=== PATIENT | male | born 1965 | race Caucasian/White ===

== ENCOUNTER → 2019-11-01 | Outpatient (CLI) | payer BC ==
[~2019-11-01] MED LIST: AMIO200T4 PO; APIX5TAB PO; ASPI-983 PO; CALC10009 PO; DIGO250T15 PO; FISH1CAP15 PO; FURO-124 PO; IBUP-2473 PO; METO50TA7 PO; MULT1TAB60 PO; POTA10TA36 PO; SACU1TAB2 PO; SAW450CA7 PO; SPIR25TA5 PO
[2019-11-01 11:41] LABS: BASOPHILS # (AUTO) 0.1 10^3/uL (0.0-0.1); BASOPHILS % (AUTO) 1 % (0-10); EOSINOPHILS # (AUTO) 0.6 10^3/uL (0.0-0.3); EOSINOPHILS % (AUTO) 8 % (0-10); HEMATOCRIT 50 % (40-54); HEMOGLOBIN 16.4 G/DL (13.3-17.7); LYMPHOCYTES # (AUTO) 2.4 X 10^3 (1.0-4.0); LYMPHOCYTES % (AUTO) 31 % (12-44); MEAN CORPUSCULAR HEMOGLOBIN 31 PG (25-34); MEAN CORPUSCULAR HGB CONC 33 G/DL (32-36); MEAN CORPUSCULAR VOLUME 93 FL (80-99); MEAN PLATELET VOLUME 9.9 FL (7.4-10.4); MONOCYTES # (AUTO) 0.6 X 10^3 (0.0-1.0); MONOCYTES % (AUTO) 7 % (0-12); NEUTROPHILS # (AUTO) 3.9 X 10^3 (1.8-7.8); NEUTROPHILS % (AUTO) 52 % (42-75); PLATELET COUNT 208 10^3/uL (130-400); RED CELL DISTRIBUTION WIDTH 13.1 % (10.0-14.5); WHITE BLOOD COUNT 7.5 10^3/uL (4.3-11.0)
[2019-11-01 12:00] LABS: BILIRUBIN,TOTAL 0.7 MG/DL (0.1-1.0); CALCIUM 9.2 MG/DL (8.5-10.1); CREATININE SERUM 1.36 MG/DL (0.60-1.30); MAGNESIUM 2.2 MG/DL (1.6-2.4); POTASSIUM 4.9 MMOL/L (3.6-5.0); TOTAL PROTEIN 7.1 GM/DL (6.4-8.2)
== END ==
LOC: LAB 11:24
PROVIDERS: ATTEND Internal Medicine Cardiovascular Disease
DX: I42.0 Dilated cardiomyopathy (principal); I50.23 Acute on chronic systolic (congestive) heart failure; I48.0 Paroxysmal atrial fibrillation
CPT/HCPCS: 36415; 80053; 80162; 83735; 85025

== ENCOUNTER → 2019-11-07 | Outpatient (CLI) | payer BC ==
[2019-11-07 14:03] LABS: CHLORIDE 104 MMOL/L (98-107); POTASSIUM 4.2 MMOL/L (3.6-5.0); SODIUM 138 MMOL/L (135-145)
[2019-11-07 14:04] LABS: CALCIUM 8.8 MG/DL (8.5-10.1)
[2019-11-07 14:05] LABS: GLUCOSE 110 MG/DL (70-105)
[2019-11-07 14:06] LABS: CARBON DIOXIDE 23 MMOL/L (21-32)
[2019-11-07 14:09] LABS: CREATININE SERUM 1.22 MG/DL (0.60-1.30); GFR ESTIMATED > 60
[2019-11-07 14:10] LABS: BUN/CREATININE RATIO 15
== END ==
LOC: LAB 13:39
PROVIDERS: ATTEND Nurse Practitioner Family
DX: R78.89 Finding of other specified substances, not normally found in blood (principal)
CPT/HCPCS: 36415; 80048; 80162

== ENCOUNTER → 2019-12-21 | Outpatient (CLI) | payer BC ==
[2019-12-21 10:37] LABS: BUN/CREATININE RATIO 11; CALCIUM 8.6 MG/DL (8.5-10.1); CARBON DIOXIDE 26 MMOL/L (21-32); CHLORIDE 107 MMOL/L (98-107); CREATININE SERUM 1.24 MG/DL (0.60-1.30); GFR ESTIMATED > 60; GLUCOSE 94 MG/DL (70-105); MAGNESIUM 2.1 MG/DL (1.6-2.4); POTASSIUM 3.6 MMOL/L (3.6-5.0); SODIUM 140 MMOL/L (135-145)
== END ==
LOC: LAB 10:01
PROVIDERS: ATTEND Nurse Practitioner Family
DX: I42.0 Dilated cardiomyopathy (principal)
CPT/HCPCS: 36415; 80048; 80162; 83735

== ENCOUNTER → 2020-03-01 | Outpatient (CLI) | payer BC ==
[~2020-03-01] MED LIST changes: +ASPI-1238 PO; -ASPI-983 PO; +CATHETER FLUSH 10 ML SYR IV PRN; +HEParin (CENTRAL IV FLUSH) 500 UNIT/5 ML SYR ONE
== END ==
LOC: CARD 13:42
PROVIDERS: ATTEND Nurse Practitioner Family
DX: I48.0 Paroxysmal atrial fibrillation (principal); I42.0 Dilated cardiomyopathy; I50.22 Chronic systolic (congestive) heart failure; E66.01 Morbid (severe) obesity due to excess calories
CPT/HCPCS: 78472; A9560

== ENCOUNTER → 2020-04-29 | Outpatient (CLI) | payer BC ==
[~2020-04-29] MED LIST changes: -AMIO200T4 PO; +AMIO200T6 PO; -CATHETER FLUSH 10 ML SYR IV PRN; -HEParin (CENTRAL IV FLUSH) 500 UNIT/5 ML SYR ONE
[2020-04-29 14:00] LABS: ALBUMIN 4.6 GM/DL (3.2-4.5); CHLORIDE 103 MMOL/L (98-107); POTASSIUM 4.2 MMOL/L (3.6-5.0); SODIUM 139 MMOL/L (135-145)
[2020-04-29 14:01] LABS: CALCIUM 9.1 MG/DL (8.5-10.1)
[2020-04-29 14:02] LABS: GLUCOSE 97 MG/DL (70-105); TOTAL PROTEIN 7.5 GM/DL (6.4-8.2)
[2020-04-29 14:03] LABS: CARBON DIOXIDE 27 MMOL/L (21-32)
[2020-04-29 14:04] LABS: BILIRUBIN,TOTAL 0.5 MG/DL (0.1-1.0)
[2020-04-29 14:06] LABS: ALKALINE PHOSPHATASE 37 U/L (40-136); CREATININE SERUM 1.44 MG/DL (0.60-1.30); GFR ESTIMATED 51
[2020-04-29 14:07] LABS: BUN/CREATININE RATIO 10
[2020-04-29 14:09] LABS: ALANINE AMINOTRANSFERASE 22 U/L (0-55); MAGNESIUM 2.2 MG/DL (1.6-2.4)
== END ==
LOC: LAB 13:30
PROVIDERS: ATTEND Nurse Practitioner Family
DX: I42.0 Dilated cardiomyopathy (principal); I48.0 Paroxysmal atrial fibrillation; I50.22 Chronic systolic (congestive) heart failure; Z79.01 Long term (current) use of anticoagulants
CPT/HCPCS: 36415; 80053; 80162; 83735

== ENCOUNTER → 2020-05-03 | Outpatient (CLI) | payer BC | LOC: CARD 12:57 | PROVIDERS: ATTEND Nurse Practitioner Family | DX: I51.7 Cardiomegaly (principal); I51.89 Other ill-defined heart diseases; I42.0 Dilated cardiomyopathy | CPT/HCPCS: 93306 ==

== ENCOUNTER 2020-11-28 10:00 | Observation (INO) | payer BC ==
[~2020-11-28] VITALS: Ht 182.9 cm; Wt 93.0 kg
[2020-11-28] VITALS (10 sets, daily range): BP systolic 73–123; BP diastolic 44–88
[2020-11-28 10:48] LABS: BASOPHILS % (AUTO) 0 % (0-10); EOSINOPHILS # (AUTO) 0.1 10^3/uL (0.0-0.3); EOSINOPHILS % (AUTO) 1 % (0-10); HEMATOCRIT 27 % (40-54); LYMPHOCYTES # (AUTO) 0.9 10^3/uL (1.0-4.0); LYMPHOCYTES % (AUTO) 9 % (12-44); MEAN CORPUSCULAR HEMOGLOBIN 35 pg (25-34); MEAN CORPUSCULAR HGB CONC 37 g/dL (32-36); MEAN CORPUSCULAR VOLUME 97 fL (80-99); MEAN PLATELET VOLUME 8.7 fL (9.0-12.2); MONOCYTES # (AUTO) 0.9 10^3/uL (0.0-1.0); MONOCYTES % (AUTO) 9 % (0-12); NEUTROPHILS # (AUTO) 8.4 10^3/uL (1.8-7.8); NEUTROPHILS % (AUTO) 80 % (42-75); PLATELET COUNT 281 10^3/uL (130-400); WHITE BLOOD COUNT 10.5 10^3/uL (4.3-11.0)
[2020-11-28 10:52] LABS: ALBUMIN 4.7 GM/DL (3.2-4.5); CHLORIDE 84 MMOL/L (98-107); POTASSIUM 3.5 MMOL/L (3.6-5.0)
[2020-11-28 10:53] LABS: CALCIUM 9.3 MG/DL (8.5-10.1)
[2020-11-28 10:54] LABS: GLUCOSE 103 MG/DL (70-105); TOTAL PROTEIN 7.6 GM/DL (6.4-8.2)
[2020-11-28 10:55] LABS: CARBON DIOXIDE 23 MMOL/L (21-32)
[2020-11-28 10:56] LABS: BILIRUBIN,TOTAL 0.9 MG/DL (0.1-1.0)
[2020-11-28 10:58] LABS: ALKALINE PHOSPHATASE 56 U/L (40-136); CREATININE SERUM 1.66 MG/DL (0.60-1.30); GFR ESTIMATED 43
[2020-11-28 10:59] LABS: BUN/CREATININE RATIO 5
[2020-11-28 11:01] LABS: ALANINE AMINOTRANSFERASE 71 U/L (0-55); MAGNESIUM 2.5 MG/DL (1.6-2.4)
[2020-11-28 11:06] LABS: SODIUM 120 MMOL/L (135-145)
[2020-11-28] MEDS ORDERED: NS IV 1000 ML 1,000 ML IV SCH ×2 (11:15→18:00)
--- NOTE | 2020-11-28 11:15 | ED Syncope ---
General Chief Complaint: Dizziness Stated Complaint: DIZZINESS Nursing Triage Note: PT PRESENTS TO ED VIA POV FROM HOME WITH COMPLAINTS OF DIZZINESS AND LIGHTHEADEDNESS X 2 DAYS. (MAX SHERWOOD MED STUDENT) History of Present Illness Date Seen by Provider: November 28, 2020 Time Seen by Provider: 10:15 Initial Comments 55 y/o male with PMHx of nonischemic dilated cardiomyopathy, EtOH abuse and Afib presents with 2-3 days of dizziness on standing. Patient states dizziness feels like a lightheadedness/like he is going to pass out when he stands up, but does not feel it at rest. He reports never having had similar symptoms before. He reports having fallen last night because of his dizziness, falling onto his R abdomen though he did not pass out and has no pain or injury from the fall. He also states he has not been eating much over the last few days due to lack of appetite, possibly from a cold he is recovering from. Patient is currently taking Entresto, Furosemide, Amioderone, Metoprolol, Eliquis, Spironolactone and Digoxin. Reports he feels a little anxious but denies any chest pain, palpitations, SOB, wheezing, abdominal pain, vomiting, diarrhea, syncope, vision changes, and hearing changes. -Heart Cath 10/17/19 -EF 10% -Echo 10/14/19 -mod/sev MR -mod/sev TR (MAX SHERWOOD MED STUDENT) Allergies and Home Medications Allergies Coded Allergies: No Known Drug Allergies (Unverified , 10/13/19) Home Medications Amiodarone HCl 200 Mg Tablet, 200 MG PO DAILY, (Reported) Last Action: Continued Apixaban 5 Mg Tablet, 5 MG PO BID, (Reported) Last Action: Continued Aspirin 81 Mg Tablet.dr, 81 MG PO DAILY, (Reported) Last Action: Held Digoxin 125 Mcg Tablet, 125 MCG PO DAILY, (Reported) Last Action: Continued Diphenhydramine HCl 25 Mg Tablet, 25-50 MG PO HS PRN for SLEEP, (Reported) Last Action: Held Furosemide 40 Mg Tablet, 40 MG PO BID, (Reported) Last Action: Held Metoprolol Succinate 50 Mg Tab.er.24h, 50 MG PO DAILY, (Reported) Last Action: Held Potassium Chloride 10 Meq Tab.er.prt, 10 MEQ PO BID, (Reported) Last Action: Held Sacubitril/Valsartan 1 Each Tablet, 1 TAB PO BID, (Reported) Last Action: Held Spironolactone 25 Mg Tablet, 25 MG PO DAILY, (Reported) Last Action: Held Patient Home Medication List Home Medication List Reviewed: Yes (MARTÍN CLINE MD) Review of Systems Constitutional: dizziness; No fever, No malaise EENTM: No hearing loss, No blurred vision, No double vision, No vision loss Respiratory: No cough, No short of breath, No wheezing Cardiovascular: No chest pain, No palpitations, No syncope Gastrointestinal: No abdominal pain, No constipation, No diarrhea, No vomiting Genitourinary: No dysuria, No hematuria, No incontinence Musculoskeletal: No back pain, No joint pain Skin: No pruritus, No rash Psychiatric/Neurological: Anxiety; Denies Headache (MAX SHERWOOD) Past Hearfnx-Rkaywp-Ypejml Hx Patient Social History Alcohol Use: Occasionally Uses Number of Drinks Today: AA Alcohol Beverage of Choice: Beer Smoking Status: Former Smoker Former Smoker, Quit: November 20, 1997 2nd Hand Smoke Exposure: No Recent Infectious Disease Expo: No Recent Hopitalizations: No (MAX SHERWOOD) Seasonal Allergies Seasonal Allergies: No (MAX SHERWOOD) Past Medical History Surgeries: Yes (R LEG) Orthopedic Respiratory: No Cardiac: Yes Atrial Fibrillation, Chronic Edema/Swelling, Hypertension Neurological: No Genitourinary: No Gastrointestinal: No Musculoskeletal: No Endocrine: No HEENT: No Cancer: No Psychosocial: Yes Anxiety Integumentary: No (MAX SHERWOOD) Family Medical History No Pertinent Family Hx (MAX SHERWOOD) Physical Exam Vital Signs Vital Signs - First Documented 11/28/20 10:06 Temp 36.1 Pulse 78 Resp 22 B/P (MAP) 123/74 (90) Pulse Ox 98 (MARTÍN CLINE MD) Vital Signs Capillary Refill : Less Than 3 Seconds (MAX SHERWOOD) Height, Weight, BMI Height: '" Weight: lbs. oz. kg; 29.00 BMI Method: General Appearance: No Apparent Distress, WD/WN HEENT: PERRL/EOMI, Moist Mucous Membranes Neck: Normal Inspection, Non Tender Cardiovascular: Regular Rate, Rhythm, No Edema, No Murmur Respiratory: Chest Non Tender, Lungs Clear, Normal Breath Sounds Gastrointestinal: Normal Bowel Sounds, Non Tender, Soft Back: No CVA Tenderness, No Vertebral Tenderness Extremities: Normal Capillary Refill, Normal Inspection, Non Tender Neurologic/Psychiatric: Alert, Normal Mood/Affect Cranial Nerves: Normal Hearing, Normal Speech, PERRL Coordination/Gait: Normal Gait Motor/Sensory: No Motor Deficit Skin: Normal Color, Warm/Dry Lymphatic: No Adenopathy (MAX SHERWOOD STUDENT) Progress/Results/Core Measures Results/Orders Lab Results Laboratory Tests Test 11/28/20 10:20 Range/Units White Blood Count 10.5 4.3-11.0 10^3/uL Red Blood Count 2.83 L 4.30-5.52 10^6/uL Hemoglobin 10.0 L 13.3-17.7 g/dL Hematocrit 27 L 40-54 % Mean Corpuscular Volume 97 80-99 fL Mean Corpuscular Hemoglobin 35 H 25-34 pg Mean Corpuscular Hemoglobin Concent 37 H 32-36 g/dL Red Cell Distribution Width 13.4 10.0-14.5 % Platelet Count 281 130-400 10^3/uL Mean Platelet Volume 8.7 L 9.0-12.2 fL Immature Granulocyte % (Auto) 2 % Neutrophils (%) (Auto) 80 H 42-75 % Lymphocytes (%) (Auto) 9 L 12-44 % Monocytes (%) (Auto) 9 0-12 % Eosinophils (%) (Auto) 1 0-10 % Basophils (%) (Auto) 0 0-10 % Neutrophils # (Auto) 8.4 H 1.8-7.8 10^3/uL Lymphocytes # (Auto) 0.9 L 1.0-4.0 10^3/uL Monocytes # (Auto) 0.9 0.0-1.0 10^3/uL Eosinophils # (Auto) 0.1 0.0-0.3 10^3/uL Basophils # (Auto) 0.0 0.0-0.1 10^3/uL Immature Granulocyte # (Auto) 0.2 H 0.0-0.1 10^3/uL Sodium Level 120 *L 135-145 MMOL/L Potassium Level 3.5 L 3.6-5.0 MMOL/L Chloride Level 84 L 98-107 MMOL/L Carbon Dioxide Level 23 21-32 MMOL/L Anion Gap 15 H 5-14 MMOL/L Blood Urea Nitrogen 9 7-18 MG/DL Creatinine 1.66 H 0.60-1.30 MG/DL Estimat Glomerular Filtration Rate 43 BUN/Creatinine Ratio 5 Glucose Level 103 70-105 MG/DL Calcium Level 9.3 8.5-10.1 MG/DL Corrected Calcium 8.5-10.1 MG/DL Magnesium Level 2.5 H 1.6-2.4 MG/DL Total Bilirubin 0.9 0.1-1.0 MG/DL Aspartate Amino Transf (AST/SGOT) 82 H 5-34 U/L Alanine Aminotransferase (ALT/SGPT) 71 H 0-55 U/L Alkaline Phosphatase 56 40-136 U/L B-Type Natriuretic Peptide 31.3 <100.0 PG/ML Total Protein 7.6 6.4-8.2 GM/DL Albumin 4.7 H 3.2-4.5 GM/DL Digoxin Level 0.99 0.80-2.00 NG/ML Serum Alcohol < 10 <10 MG/DL (MARTÍN CLINE MD) My Orders Orders - MARTÍN CLINE MD Cbc With Automated Diff (11/28/20 10:40) Comprehensive Metabolic Panel (11/28/20 10:40) Magnesium (11/28/20 10:40) Ed Iv/Invasive Line Start (11/28/20 10:40) Ekg Tracing (11/28/20 10:40) Monitor-Rhythm Ecg Trace Only (11/28/20 10:40) BNP (11/28/20 10:40) Digoxin (11/28/20 10:44) Alcohol (11/28/20 10:44) Orthostatic Vital Signs (Adult (11/28/20 10:45) Ns Iv 1000 Ml (Sodium Chloride 0.9%) (11/28/20 11:15) (MARTÍN CLINE MD) Vital Signs/I&O 11/28/20 11/28/20 10:06 10:49 Temp 36.1 Pulse 78 71 76 81 Resp 22 B/P (MAP) 123/74 (90) 109/66 (80) 104/54 (71) 73/58 (63) Pulse Ox 98 (MARTÍN CLINE MD) Blood Pressure Mean: 63 Progress Progress Note : Time: 11:13 Progress Note Orthostatics show sitting BP 104/54, standing BP of 73/58, labs show significant hyponatremia of 120, will give NS and monitor (MAX SHERWOOD MED STUDENT) Progress Note #1: Time: 12:25 Progress Note Patient was found to have multiple causes for his lightheadedness. He had orthostatic hypotension with a standing systolic blood pressure of 73. He was also hyponatremic and exhibiting renal insufficiency, possibly acute kidney injury. Sodium was noted to be 120 which is likely due to a combination of daily alcohol consumption of approximately 12 beers combined with diuretic use. Patient also uses beta-blockers. He was found to have a new anemia with a hemoglobin of 10. He has noted some dark black tarry stools recently. I have requested Hemoccult of his stools. He is receiving a liter of IV normal saline in the ER. We will follow that with normal saline at 100 mL/h. Patient is agreeable to admission to help sort out these issues and ensure adequate improvement before he is discharged home. Alcohol withdrawal orders will be added to his admission order set. I have discussed the case with Dr. Howard and Dr. Cotter. Progress Note #2: Time: 13:11 Progress Note Patient now complains of right shoulder pain since having a fall 2 weeks ago. He tripped over a rabbit cage and struck his right shoulder on the ground. He cannot lift it beyond about 90 degrees and he has tenderness to palpation over the AC joint region. We will x-ray it. Progress Note #3: Progress Note Patient's x-ray was reviewed after admission. Fracture was noted. The floor was contacted and instructed to provide him with a sling. Dr. Howard was updated. This is a subacute fracture by clinical history. No trauma consult is necessary. (MARTÍN CLINE MD) Initial ECG Impression Date: November 28, 2020 Initial ECG Impression Time: 10:11 Initial ECG Rate: 74 Comment Sinus or junctional rhythm. Automated read notes left bundle branch block. Morphologies are similar to prior EKGs but prior EKGs were atrial fibrillation. No ST elevation or depression. (MARTÍN CLINE MD) Diagnostic Imaging Diagonstic Imaging: Xray Plain Films/CT/US/NM/MRI: other (Right shoulder) Comments NAME: SUJEY ZHANG REC#: [id number] PT STATUS: ADM Amee : 1965 PHYSICIAN: MARTÍN CLINE MD ADMIT DATE: 11/28/20/ICU Signed Date of Exam:11/28/20 SHOULDER, RIGHT, 3 VIEWS INDICATION: Fall and right shoulder pain. TIME OF EXAM: 01:48 p.m. TECHNIQUE: Three views of the right shoulder were obtained. FINDINGS: There appears to be a fracture involving the greater tuberosity of the proximal humerus. No significant displacement is seen. Glenohumeral and acromioclavicular alignment are normal. The acromiohumeral space is normal. IMPRESSION: Fracture involving the greater tuberosity of the proximal humerus. No other abnormality is seen. Dictated by: Dictated on workstation # [id number] Dict: 11/28/20 1408 Trans: 11/28/20 1555 AS6 [id number] Interpreted by: CARLOS CARDENAS MD Electronically signed by: CARLOS CARDENAS MD 11/28/20 1555 (MARTÍN CLINE MD) Departure Communication (Admissions) Time/Spoke to Admitting Phy: 12:10 Dr. Howard Time/Spoke to Consulting Phy: 12:20 Dr. Cotter (MARTÍN CLINE MD) Impression Primary Impression: Hyponatremia Additional Impressions: Orthostatic hypotension Alcohol dependence Qualified Codes: F10.29 - Alcohol dependence with unspecified alcohol- induced disorder Anemia Qualified Codes: D64.9 - Anemia, unspecified Acute kidney injury Shoulder fracture, right Qualified Codes: S42.91XA - Fracture of right shoulder girdle, part unspecified, initial encounter for closed fracture Disposition: ADMITTED INPATIENT Condition: Improved Admissions Decision to Admit Reason: Admit from ER (General) Decision to Admit/Date: November 28, 2020 Time/Decision to Admit Time: 11:15 (MARTÍN CLINE MD) Departure-Patient Inst. Referrals: [facility] (PCP/Family) Primary Care Physician Medical Student Attestation and Attending Note: I have personally interviewed and examined this patient along with Max Sherwood MS3. I have reviewed student documentation including history, physical, and assessments. I agree with the documentation except where otherwise noted. Exam: General: Alert, oriented, no acute distress, well developed HEENT: Normocephalic and atraumatic Heart: Regular rate and rhythm without murmur Lungs: Clear to auscultation bilaterally with normal effort Abdomen: Soft, nontender, nondistended, normal bowel sounds Extremities: Decreased range of motion in the right shoulder. Unable to abduct beyond 90 degrees. Tenderness to the lateral shoulder with palpation. Neuropsych: Alert, oriented, no focal deficits Skin: Warm and dry without rashes (MARTÍN CLINE MD) MAX SHERWOOD MED STUDENT November 28, 2020 11:15 MARTÍN CLINE MD November 28, 2020 12:18
--- NOTE | 2020-11-28 14:13 | Diagnostic Imaging Report ---
INDICATION: Fall and right shoulder pain. TIME OF EXAM: 01:48 p.m. TECHNIQUE: Three views of the right shoulder were obtained. FINDINGS: There appears to be a fracture involving the greater tuberosity of the proximal humerus. No significant displacement is seen. Glenohumeral and acromioclavicular alignment are normal. The acromiohumeral space is normal. IMPRESSION: Fracture involving the greater tuberosity of the proximal humerus. No other abnormality is seen. Dictated by: Dictated on workstation # [id number]
[2020-11-28] MEDS ORDERED: LORazepam 1 MG (ATIVAN) TAB PO PRN (14:15)
[2020-11-28] MEDS ORDERED: SENNA W/DOCUSATE (SENOKOT S) TABLET PO PRN (14:15)
[2020-11-28] MEDS ORDERED: LORazepam INJ 2 MG/ML (ATIVAN) VIAL IV PRN (14:15)
[2020-11-28] MEDS ORDERED: CATHETER FLUSH 10 ML SYR IV PRN (14:15)
[2020-11-28] MEDS ORDERED: 1/2 NS IV SOLUTION 1,000 ML IV PRN (14:15)
[2020-11-28] MEDS ORDERED: D5 1/2 NS 1000 ML IV SOLUTION 1,000 ML IV PRN (14:15)
[2020-11-28] MEDS ORDERED: ANTACID SUSP 30 ML UDC (MYLANTA) PO PRN (14:15)
[2020-11-28] MEDS ORDERED: ONDANSETRON 4 MG (ZOFRAN) ORAL DISSOLVE TAB SL PRN (14:15)
[2020-11-28] MEDS ORDERED: ONDANSETRON 4 MG/2 ML (SDV) Z0FRAN IV PRN (14:15)
[2020-11-28] MEDS ORDERED: LORazepam INJ 2 MG/ML (ATIVAN) VIAL IM/IV PRN (14:15)
[2020-11-28] MEDS ORDERED: SPIR25TA PO (15:32)
[2020-11-28] MEDS ORDERED: POTA10TA36 PO (15:32)
[2020-11-28] MEDS ORDERED: DIPH25TA65 PO (15:32)
[2020-11-28] MEDS ORDERED: APIX5TAB PO (15:32)
[2020-11-28] MEDS ORDERED: ASPI-1238 PO (15:32)
[2020-11-28] MEDS ORDERED: FURO40TA4 PO (15:32)
[2020-11-28] MEDS ORDERED: METO50TA7 PO (15:32)
[2020-11-28] MEDS ORDERED: SACU1TAB2 PO (15:32)
[2020-11-28] MEDS ORDERED: AMIO200T6 PO (15:32)
[2020-11-28] MEDS ORDERED: DIGO125T3 PO (15:32)
--- NOTE | 2020-11-28 15:38 | Consultation-Cardiology ---
HPI-Cardiology Cardiology Consultation: Date of Consultation 11/28/20 Time Seen by a Provider: 15:35 Date of Admission 11-28-2020 Attending Physician Alba Howard MD Admitting Physician [place] Consulting Physician Michael Cotter MD HPI: Chief Complaint: Orthostatic hypotension Mr. Francisco is a 55 yr old male admitted to ICU 8 from the ED with dizziness which started a couple of days ago. He reports he has had frequent falls recently d/t losing his balance, but does not report syncope or near syncope. He states yesterday he fell onto his coffee table at home breaking it. He states he has increased his alcohol usage in the last 5 months to drinking on a daily basis 6-7 beers per night and much more on the weekends. He denies any c/o CP, palpitations, LE swelling. He states he has been taking his medication s. He reports poor oral intake of food over the last few days, but has continued to drink alcohol. Review of Systems-Cardiology Review of Systems Constitutional: No chills, No fever; lightheadedness Eyes: No vision change Ears/Nose/Throat: No epistaxis, No recent hearing loss Respiratory: As described under HPI Cardiovascular: As described under HPI Gastrointestinal: No constipation, No diarrhea; nausea; No vomiting Genitourinary: No dysuria, No hematuria Skin: No rash on exposed areas, No ulcerations on exposed areas Psychiatric/Neurological: depression; No anxiety, No seizure, No focal weakness, No syncope Hematologic: No bleeding abnormalities ETV-Jcnggg-Axjjrx Hx Patient Social History Smoking Status: Former Smoker 2nd Hand Smoke Exposure: No Past Medical History PMH As described under Assessment. Family Medical History Family Medical History: Does not report fam h/o early CAD Allergies and Home Medications Allergies Coded Allergies: No Known Drug Allergies (Unverified , 10/13/19) Home Medications Amiodarone HCl 200 Mg Tablet, 200 MG PO DAILY, (Reported) Last Action: Continued Apixaban 5 Mg Tablet, 5 MG PO BID, (Reported) Last Action: Continued Aspirin 81 Mg Tablet.dr, 81 MG PO DAILY, (Reported) Last Action: Held Digoxin 125 Mcg Tablet, 125 MCG PO DAILY, (Reported) Last Action: Continued Diphenhydramine HCl 25 Mg Tablet, 25-50 MG PO HS PRN for SLEEP, (Reported) Last Action: Held Furosemide 40 Mg Tablet, 40 MG PO BID, (Reported) Last Action: Held Metoprolol Succinate 50 Mg Tab.er.24h, 50 MG PO DAILY, (Reported) Last Action: Held Potassium Chloride 10 Meq Tab.er.prt, 10 MEQ PO BID, (Reported) Last Action: Held Sacubitril/Valsartan 1 Each Tablet, 1 TAB PO BID, (Reported) Last Action: Held Spironolactone 25 Mg Tablet, 25 MG PO DAILY, (Reported) Last Action: Held Physical Exam-Cardiology Physical Exam Vital Signs/I&O 11/28/20 11/28/20 11/28/20 11/28/20 20:24 21:00 22:00 23:00 Temp 36.4 Pulse 62 61 62 Resp 13 9 8 B/P (MAP) 102/57 (72) 101/57 (72) 117/74 (88) Pulse Ox 99 98 100 O2 Delivery Room Air Room Air Room Air 11/29/20 11/29/20 11/29/20 11/29/20 00:00 00:00 01:00 01:00 Pulse 66 67 67 Resp 11 25 B/P (MAP) 103/56 (72) 96/66 (76) Pulse Ox 92 99 99 O2 Delivery Room Air Room Air Room Air 11/29/20 11/29/20 11/29/20 11/29/20 02:00 03:00 04:00 04:00 Pulse 66 65 68 Resp 15 10 11 B/P (MAP) 106/68 (81) 114/73 (87) 110/57 (74) Pulse Ox 100 86 100 99 O2 Delivery Room Air Room Air Room Air Room Air 11/29/20 11/29/20 11/29/20 11/29/20 05:00 06:00 07:00 07:00 Pulse 66 66 64 63 Resp 10 8 12 B/P (MAP) 105/95 (98) 116/67 (83) 107/72 (84) Pulse Ox 98 99 99 O2 Delivery Room Air Room Air Room Air 11/29/20 07:54 Temp 36.0 11/29/20 00:00 Intake Total 1025 ml Output Total 0 ml Balance 1025 ml Capillary Refill : Less Than 3 Seconds Constitutional: AAO x 3, well-developed, well-nourished HEENT: PERRL, hearing is well preserved, oral hygience is good Neck: No carotid bruit; carotid pulses are 2 + bilaterally Respiratory: No accessory muscle use, No respiratory distress; chest expansion is symmetric, chest is bilaterally symmetric, lungs clear to auscultation Cardiovascular: irregularly irregular; No JVD; S1 and S2 Gastrointestinal: No tender; soft, round, audible bowel sounds Extremities: no lower extremity edema bilateral Neurologic/Psychiatric: grossly intact (moves all extremities) Skin: No rash on exposed areas, No ulcerations on exposed areas Data Review Labs Laboratory Tests 11/28/20 10:20: White Blood Count 10.5, Red Blood Count 2.83L, Hemoglobin 10.0L, Hematocrit 27L, Mean Corpuscular Volume 97, Mean Corpuscular Hemoglobin 35H, Mean Corpuscular Hemoglobin Concent 37H, Red Cell Distribution Width 13.4, Platelet Count 281, Mean Platelet Volume 8.7L, Immature Granulocyte % (Auto) 2, Neutrophils (%) (Auto) 80H, Lymphocytes (%) (Auto) 9L, Monocytes (%) (Auto) 9, Eosinophils (%) (Auto) 1, Basophils (%) (Auto) 0, Neutrophils # (Auto) 8.4H, Lymphocytes # (Auto) 0.9L, Monocytes # (Auto) 0.9, Eosinophils # (Auto) 0.1, Basophils # (Auto) 0.0, Immature Granulocyte # (Auto) 0.2H, Sodium Level 120*L, Potassium Level 3.5L, Chloride Level 84L, Carbon Dioxide Level 23, Anion Gap 15H, Blood Urea Nitrogen 9, Creatinine 1.66H, Estimat Glomerular Filtration Rate 43, BUN/Creatinine Ratio 5, Glucose Level 103, Calcium Level 9.3, Corrected Calcium , Magnesium Level 2.5H, Total Bilirubin 0.9, Aspartate Amino Transf (AST/SGOT) 82H, Alanine Aminotransferase (ALT/SGPT) 71H, Alkaline Phosphatase 56, B-Type Natriuretic Peptide 31.3, Total Protein 7.6, Albumin 4.7H, Digoxin Level 0.99, Serum Alcohol < 10 11/28/20 19:00: Hemoglobin 8.2L, Hematocrit 23L, Sodium Level 124*L, Potassium Level 3.3L, Chloride Level 92L, Carbon Dioxide Level 22, Anion Gap 10, Blood Urea Nitrogen 12, Creatinine 1.57H, Estimat Glomerular Filtration Rate 46, BUN/Creatinine Ratio 8, Glucose Level 114H, Calcium Level 8.2L 11/29/20 01:32: White Blood Count 8.1, Red Blood Count 2.37L, Hemoglobin 8.4L, Hematocrit 24L, Mean Corpuscular Volume 102H, Mean Corpuscular Hemoglobin 35H, Mean Corpuscular Hemoglobin Concent 35, Red Cell Distribution Width 14.5, Platelet Count 219, Mean Platelet Volume 9.2, Immature Granulocyte % (Auto) 2, Neutrophils (%) (Auto) 72, Lymphocytes (%) (Auto) 16, Monocytes (%) (Auto) 8, Eosinophils (%) (Auto) 2, Basophils (%) (Auto) 1, Neutrophils # (Auto) 5.8, Lymphocytes # (Auto) 1.3, Monocytes # (Auto) 0.7, Eosinophils # (Auto) 0.1, Basophils # (Auto) 0.1, Immature Granulocyte # (Auto) 0.2H, Sodium Level 126L, Potassium Level 3.8, Chloride Level 96L, Carbon Dioxide Level 21, Anion Gap 9, Blood Urea Nitrogen 12, Creatinine 1.47H, Estimat Glomerular Filtration Rate 50, BUN/Creatinine Ratio 8, Glucose Level 108H, Calcium Level 8.2L, Magnesium Level 2.5H, Phosphorus Level 2.9 Radiology NAME: SUJEY FRANCISCO [facility] REC#: [id number] PT STATUS: ADM Amee : 1965 PHYSICIAN: MARTÍN CLINE MD ADMIT DATE: 11/28/20/ICU Draft Date of Exam:11/28/20 SHOULDER, RIGHT, 3 VIEWS INDICATION: Fall and right shoulder pain. TIME OF EXAM: 01:48 p.m. TECHNIQUE: Three views of the right shoulder were obtained. FINDINGS: There appears to be a fracture involving the greater tuberosity of the proximal humerus. No significant displacement is seen. Glenohumeral and acromioclavicular alignment are normal. The acromiohumeral space is normal. IMPRESSION: Fracture involving the greater tuberosity of the proximal humerus. No other abnormality is seen. Dictated on workstation # [id number] Dict: 11/28/20 1408 Trans: 11/28/20 1413 [id number] [id number] Interpreted by: CARLOS CARDENAS MD Electronically signed by: ECG Impression ECG Initial ECG Impression: Atrial Fibrillation A/P-Cardiology Assessment/Admission Diagnosis Orthostatic hypotension Frequent falls at home - denies syncope or near syncope Hyponatremia likely secondary to ETOH abuse Reports heavy ETOH usage over the last 5 months DILLAN - likely secondary to hypotension Chronic systolic CHF (HFrEF) due to severe, nonischemic, dilated cardiomyopathy Echo of 10/14/19: LVEF 10-15%. Most recent echo of May 03, 2020 shows LVEF 40- 45%. Mild diffuse hypokinesis. PASP 35-40mmHg per Dr. Megan DIAZ of Mar 01, 2020 showed mild to mod hypokinesis with LVEF 38% Card cath of 10/17/19: LVEF 10%, global hypokinesis, LVEDP 44 mmHg, no significant CAD H/O multiple episodes of non-sustained VT on 10/14/19, treated with iv amiodarone, no recurrence A Fib of undetermined age. On apixaban for stroke prophylaxis Discussion and Recomendations Orthostatic hypotension likely secondary to vol depletion Hyponatremia likely secondary to heavy ETOH usage - management per medical services H/O NICM - echocardiogram today to re-eval LVEF Hold antihypertensives DILLAN likely secondary to vol depletion and hypotension - careful IVF hydration Frequent non-syncopal falls d/t heavy ETOH intake and vol depletion Right humerus fracture seen on x-ray - management per medical services Monitor lab closely Replace electrolytes as indicated Continue tele Continue OAC with Eliquis for stroke prophylaxis Further recs will be based on his hospital course We advise immediate and complete alcohol cessation We would like to thank medical services for this consult LELO RODAS November 28, 2020 15:38
[2020-11-28] MEDS: NS IV 1000 ML 1,000 ML IV SCH ×2 (16:14→18:12)
--- NOTE | 2020-11-28 17:57 | Consultation-Cardiology ---
HPI-Cardiology Cardiology Consultation: Date of Consultation 11/28/20 Time Seen by a Provider: 17:35 Date of Admission Attending Physician Alba Howard MD Admitting Physician [facility] Consulting Physician CHRISTOPHER MULLEN MD, MA, FACP, FAC, [facility] HPI: Chief Complaint: Reason for consultation: Orthostatic hypotension HPI Mr. Francisco is a 55 yr old male admitted to ICU 8 from the ED with dizziness which started a couple of days ago. He reports he has had frequent falls recently d/t losing his balance, but does not report syncope or near syncope. He states yesterday he fell onto his coffee table at home breaking it. He states he has increased his alcohol usage in the last 5 months to drinking on a daily basis 6-7 beers per night and much more on the weekends. He denies any c/o CP, palpitations, LE swelling. He states he has been taking his medications. He reports poor oral intake of food over the last few days, but has continued to drink alcohol. Review of Systems-Cardiology Review of Systems Constitutional: No chills, No fever; lightheadedness Eyes: No vision change Ears/Nose/Throat: No epistaxis, No recent hearing loss Respiratory: As described under HPI Cardiovascular: As described under HPI Gastrointestinal: No constipation, No diarrhea; nausea; No vomiting Genitourinary: No dysuria, No hematuria Skin: No rash on exposed areas, No ulcerations on exposed areas Psychiatric/Neurological: depression; No anxiety, No seizure, No focal weakness, No syncope Hematologic: No bleeding abnormalities [id number] Hx Patient Social History Smoking Status: Former Smoker 2nd Hand Smoke Exposure: No Have you traveled recently?: No Alcohol Use?: Yes Past Medical History PMH As described under Assessment. Family Medical History Family Medical History: Does not report fam h/o early CAD Allergies and Home Medications Allergies Coded Allergies: No Known Drug Allergies (Unverified , 10/13/19) Home Medications Amiodarone HCl 200 Mg Tablet, 200 MG PO DAILY, (Reported) Last Action: Continued Apixaban 5 Mg Tablet, 5 MG PO BID, (Reported) Last Action: Continued Aspirin 81 Mg Tablet.dr, 81 MG PO DAILY, (Reported) Last Action: Held Digoxin 125 Mcg Tablet, 125 MCG PO DAILY, (Reported) Last Action: Continued Diphenhydramine HCl 25 Mg Tablet, 25-50 MG PO HS PRN for SLEEP, (Reported) Last Action: Held Furosemide 40 Mg Tablet, 40 MG PO BID, (Reported) Last Action: Held Metoprolol Succinate 50 Mg Tab.er.24h, 50 MG PO DAILY, (Reported) Last Action: Held Potassium Chloride 10 Meq Tab.er.prt, 10 MEQ PO BID, (Reported) Last Action: Held Sacubitril/Valsartan 1 Each Tablet, 1 TAB PO BID, (Reported) Last Action: Held Spironolactone 25 Mg Tablet, 25 MG PO DAILY, (Reported) Last Action: Held Patient Home Medication List Home Medication List Reviewed: Yes Physical Exam-Cardiology Physical Exam Vital Signs/I&O 11/28/20 11/28/20 11/28/20 11/28/20 10:06 10:49 13:15 14:15 Temp 36.1 Pulse 78 71 65 64 76 81 Resp 22 20 25 B/P (MAP) 123/74 (90) 109/66 (80) 92/62 123/79 (94) 104/54 (71) 73/58 (63) Pulse Ox 98 98 100 O2 Delivery Room Air 11/28/20 11/28/20 11/28/20 14:16 17:00 17:45 Temp 36.3 Pulse 65 66 Resp 12 B/P (MAP) 74/44 (54) Pulse Ox 100 O2 Delivery Room Air Capillary Refill : Less Than 3 Seconds Constitutional: AAO x 3, well-developed, well-nourished HEENT: PERRL, hearing is well preserved, oral hygience is good Neck: No carotid bruit; carotid pulses are 2 + bilaterally Respiratory: No accessory muscle use, No respiratory distress; chest expansion is symmetric, chest is bilaterally symmetric, lungs clear to auscultation Cardiovascular: irregularly irregular; No JVD; S1 and S2 Gastrointestinal: No tender; soft, round, audible bowel sounds Extremities: no lower extremity edema bilateral Neurologic/Psychiatric: grossly intact (moves all extremities) Skin: No rash on exposed areas, No ulcerations on exposed areas Data Review Labs Laboratory Tests 11/28/20 10:20: White Blood Count 10.5, Red Blood Count 2.83L, Hemoglobin 10.0L, Hematocrit 27L, Mean Corpuscular Volume 97, Mean Corpuscular Hemoglobin 35H, Mean Corpuscular Hemoglobin Concent 37H, Red Cell Distribution Width 13.4, Platelet Count 281, Mean Platelet Volume 8.7L, Immature Granulocyte % (Auto) 2, Neutrophils (%) (Auto) 80H, Lymphocytes (%) (Auto) 9L, Monocytes (%) (Auto) 9, Eosinophils (%) (Auto) 1, Basophils (%) (Auto) 0, Neutrophils # (Auto) 8.4H, Lymphocytes # (Auto) 0.9L, Monocytes # (Auto) 0.9, Eosinophils # (Auto) 0.1, Basophils # (Auto) 0.0, Immature Granulocyte # (Auto) 0.2H, Sodium Level 120*L, Potassium Level 3.5L, Chloride Level 84L, Carbon Dioxide Level 23, Anion Gap 15H, Blood Urea Nitrogen 9, Creatinine 1.66H, Estimat Glomerular Filtration Rate 43, BUN/Creatinine Ratio 5, Glucose Level 103, Calcium Level 9.3, Corrected Calcium , Magnesium Level 2.5H, Total Bilirubin 0.9, Aspartate Amino Transf (AST/SGOT) 82H, Alanine Aminotransferase (ALT/SGPT) 71H, Alkaline Phosphatase 56, B-Type Natriuretic Peptide 31.3, Total Protein 7.6, Albumin 4.7H, Digoxin Level 0.99, Serum Alcohol < 10 A/P-Cardiology Assessment/Admission Diagnosis Shock of undetermined etiology, probably hypovolemic, also consider septic. No e vidence of cardiogenic shock Orthostatic hypotension DILLAN 2, likely due ATN due to hypotension Frequent falls at home - denies syncope or near syncope Hyponatremia likely secondary to ETOH abuse Reports heavy ETOH usage over the last 5 months H/o alcohol-related, nonischemic, dilated cardiomyopathy - Echo of 10/14/19: LVEF 10-15%. - Card cath of 10/17/19: LVEF 10%, global hypokinesis, LVEDP 44 mmHg, no significant CAD - MUGA of Mar 01, 2020 showed mild to mod hypokinesis with LVEF 38% - Echo of May 03, 2020: LVEF 40-45%. Mild diffuse hypokinesis. PASP 35-40mmHg - Echo of 11/28/20: LVEF 50-55%, normal PASP H/O multiple episodes of non-sustained VT on 10/14/19, treated with iv amiodarone, no recurrence PAF. On apixaban for stroke prophylaxis Discussion and Recomendations Orthostatic hypotension likely secondary to vol depletion - IVF Hyponatremia likely secondary to heavy ETOH usage - management per medical services Hold antihypertensives DILLAN likely secondary to vol depletion and hypotension - careful IVF hydration Frequent non-syncopal falls d/t heavy ETOH intake and vol depletion Right humerus fracture seen on x-ray - management per medical services Monitor lab closely Replace electrolytes as indicated Continue tele Continue OAC with Eliquis for stroke prophylaxis D/c dig (rhythm intermittently appears to be junctional) Further recs will be based on his hospital course We advise immediate and complete alcohol cessation We would like to thank Medical services for this consult CHRISTOPHER MULLEN MD FACP [facility]ACC [facility] November 28, 2020 17:56
[2020-11-28 19:04] LABS: HEMOGLOBIN 8.2 g/dL (13.3-17.7)
[2020-11-28 19:20] LABS: CALCIUM 8.2 MG/DL (8.5-10.1); CREATININE SERUM 1.57 MG/DL (0.60-1.30); POTASSIUM 3.3 MMOL/L (3.6-5.0)
[2020-11-28] MEDS: APIXABAN 5 MG (ELIQUIS) TABLET PO SCH (20:13)
[2020-11-28] MEDS: FAMOTIDINE 20 MG (PEPCID) TABLET PO SCH (20:34)
[2020-11-28] MEDS: POTASSIUM CL 10MEQ/50ML IVPB 50 ML IV SCH ×4 (20:34→23:14)
[2020-11-28] MEDS: MAGNESIUM OXIDE (MAG-OX)400 MG TAB PO SCH (20:34)
[2020-11-29] VITALS (25 sets, daily range): BP systolic 82–137; BP diastolic 41–95
[2020-11-29 01:54] LABS: CREATININE SERUM 1.47 MG/DL (0.60-1.30); POTASSIUM 3.8 MMOL/L (3.6-5.0)
[2020-11-29 01:55] LABS: CALCIUM 8.2 MG/DL (8.5-10.1)
[2020-11-29 01:56] LABS: MAGNESIUM 2.5 MG/DL (1.6-2.4); PHOSPHORUS 2.9 MG/DL (2.3-4.7)
[2020-11-29 03:24] LABS: BASOPHILS # (AUTO) 0.1 10^3/uL (0.0-0.1); BASOPHILS % (AUTO) 1 % (0-10); EOSINOPHILS # (AUTO) 0.1 10^3/uL (0.0-0.3); EOSINOPHILS % (AUTO) 2 % (0-10); HEMATOCRIT 24 % (40-54); HEMOGLOBIN 8.4 g/dL (13.3-17.7); LYMPHOCYTES # (AUTO) 1.3 10^3/uL (1.0-4.0); LYMPHOCYTES % (AUTO) 16 % (12-44); MEAN CORPUSCULAR HEMOGLOBIN 35 pg (25-34); MEAN CORPUSCULAR HGB CONC 35 g/dL (32-36); MEAN CORPUSCULAR VOLUME 102 fL (80-99); MEAN PLATELET VOLUME 9.2 fL (9.0-12.2); MONOCYTES # (AUTO) 0.7 10^3/uL (0.0-1.0); MONOCYTES % (AUTO) 8 % (0-12); NEUTROPHILS # (AUTO) 5.8 10^3/uL (1.8-7.8); NEUTROPHILS % (AUTO) 72 % (42-75); PLATELET COUNT 219 10^3/uL (130-400); WHITE BLOOD COUNT 8.1 10^3/uL (4.3-11.0)
[2020-11-29] MEDS: POTASSIUM CL 10MEQ/50ML IVPB 50 ML IV SCH (03:26)
[2020-11-29] MEDS: MAGNESIUM 1 GM/100 ML IVPB 100 ML IV SCH (03:26)
[2020-11-29] MEDS: KCL 20 MEQ TAB (K-DUR) PO SCH (03:26)
[2020-11-29] MEDS: MULTIVIT W/MINERALS TAB (THERAGRAN M) PO SCH (06:33)
[2020-11-29] MEDS: THIAMINE 100 MG (VITAMIN B-1) TAB PO SCH (06:33)
[2020-11-29] MEDS: AMIODARONE 200 MG (CORDARONE) TAB PO SCH (07:52)
[2020-11-29] MEDS: APIXABAN 5 MG (ELIQUIS) TABLET PO SCH (07:52)
[2020-11-29] MEDS: FAMOTIDINE 20 MG (PEPCID) TABLET PO SCH ×2 (07:52→20:31)
[2020-11-29] MEDS: FOLIC ACID 1 MG TAB PO SCH (07:52)
[2020-11-29] MEDS: MAGNESIUM OXIDE (MAG-OX)400 MG TAB PO SCH ×2 (07:52→20:31)
--- NOTE | 2020-11-29 08:20 | Progress Note - Cardiology ---
Cardiology SOAP Progress Note Subjective: Sitting up in bed this morning States he feels fine Reports he has been having dark, tarry BM's at home for a few weeks which he thought was d/t charcoal toothpaste No c/o palpitations No c/o SOB No c/o n/v/d Objective: I&O/Vital Signs 11/29/20 11/29/20 11/29/20 11/29/20 02:00 03:00 04:00 04:00 Pulse 66 65 68 Resp 15 10 11 B/P (MAP) 106/68 (81) 114/73 (87) 110/57 (74) Pulse Ox 100 86 100 99 O2 Delivery Room Air Room Air Room Air Room Air 11/29/20 11/29/20 11/29/20 11/29/20 05:00 06:00 07:00 07:00 Pulse 66 66 64 63 Resp 10 8 12 B/P (MAP) 105/95 (98) 116/67 (83) 107/72 (84) Pulse Ox 98 99 99 O2 Delivery Room Air Room Air Room Air 11/29/20 11/29/20 11/29/20 11/29/20 07:30 07:54 08:00 09:00 Temp 36.0 Pulse 70 68 Resp 14 20 B/P (MAP) 93/56 (68) 82/41 (55) Pulse Ox 98 98 100 O2 Delivery Room Air Room Air Room Air 11/29/20 11/29/20 11/29/20 11/29/20 10:00 10:04 11:00 12:00 Pulse 69 71 67 66 74 75 Resp 17 11 15 B/P (MAP) 118/65 (82) 118/65 (82) 106/61 (76) 110/67 (81) 106/60 (75) 85/55 (65) Pulse Ox 99 99 97 O2 Delivery Room Air Room Air Room Air 11/29/20 11/29/20 12:51 13:00 Pulse 67 68 Resp 16 B/P (MAP) 137/70 (92) Pulse Ox 98 O2 Delivery Room Air 11/29/20 00:00 Intake Total 1025 ml Output Total 0 ml Balance 1025 ml Constitutional: AAO x 3, well-developed, well-nourished Respiratory: No accessory muscle use, No respiratory distress; chest expansion is symmetric, chest is bilaterally symmetric, lungs clear to auscultation Cardiovascular: irregularly irregular; No JVD; S1 and S2 Gastrointestional: No tender; soft, round, audible bowel sounds Extremities: no lower extremity edema bilateral Neurologic/Psychiatric: grossly intact (moves all extremities) Skin: No rash on exposed areas, No ulcerations on exposed areas Results/Procedures: Labs Laboratory Tests 11/28/20 19:00: Hemoglobin 8.2L, Hematocrit 23L, Sodium Level 124*L, Potassium Level 3.3L, Chloride Level 92L, Carbon Dioxide Level 22, Anion Gap 10, Blood Urea Nitrogen 12, Creatinine 1.57H, Estimat Glomerular Filtration Rate 46, BUN/Creatinine R atio 8, Glucose Level 114H, Calcium Level 8.2L 11/29/20 01:32: Hemoglobin 8.4L, Hematocrit 24L, Sodium Level 126L, Potassium Level 3.8, Chloride Level 96L, Carbon Dioxide Level 21, Anion Gap 9, Blood Urea Nitrogen 12, Creatinine 1.47H, Estimat Glomerular Filtration Rate 50, BUN/Creatinine Ratio 8, Glucose Level 108H, Calcium Level 8.2L, White Blood Count 8.1, Red Blood Count 2.37L, Mean Corpuscular Volume 102H, Mean Corpuscular Hemoglobin 35H , Mean Corpuscular Hemoglobin Concent 35, Red Cell Distribution Width 14.5, Platelet Count 219, Mean Platelet Volume 9.2, Immature Granulocyte % (Auto) 2, Neutrophils (%) (Auto) 72, Lymphocytes (%) (Auto) 16, Monocytes (%) (Auto) 8, Eosinophils (%) (Auto) 2, Basophils (%) (Auto) 1, Neutrophils # (Auto) 5.8, Lymphocytes # (Auto) 1.3, Monocytes # (Auto) 0.7, Eosinophils # (Auto) 0.1, Basophils # (Auto) 0.1, Immature Granulocyte # (Auto) 0.2H, Phosphorus Level 2.9, Magnesium Level 2.5H 11/29/20 08:15: Sodium Level 128L, Potassium Level 3.5L, Chloride Level 97L, Carbon Dioxide Level 22, Anion Gap 9, Blood Urea Nitrogen 10, Creatinine 1.36H, Estimat Glomerular Filtration Rate 54, BUN/Creatinine Ratio 7, Glucose Level 132H, Calcium Level 8.3L, Corrected Calcium 8.3L, Total Bilirubin 0.4, Aspartate Amino Transf (AST/SGOT) 45H, Alanine Aminotransferase (ALT/SGPT) 49, Alkaline Phosphatase 52, Total Protein 6.4, Albumin 4.0 A/P: Assessment: Shock of undetermined etiology, probably hypovolemic, also consider septic. No evidence of cardiogenic shock Orthostatic hypotension - improving DILLAN 2, likely due ATN due to hypotension - renal function improving Frequent falls at home - denies syncope or near syncope Hyponatremia likely secondary to ETOH abuse - improving Anemia of undetermined etiology - suspect GI bleed Reports heavy ETOH usage over the last 5 months H/o alcohol-related, nonischemic, dilated cardiomyopathy - Echo of 10/14/19: LVEF 10-15%. - Card cath of 10/17/19: LVEF 10%, global hypokinesis, LVEDP 44 mmHg, no significant CAD - MUGA of Mar 01, 2020 showed mild to mod hypokinesis with LVEF 38% - Echo of May 03, 2020: LVEF 40-45%. Mild diffuse hypokinesis. PASP 35-40mmHg - Echo of 11/28/20: LVEF 50-55%, normal PASP H/O multiple episodes of non-sustained VT on 10/14/19, treated with iv amiodarone, no recurrence PAF. On apixaban for stroke prophylaxis Plan: Orthostatic hypotension likely secondary to vol depletion - IVF Hyponatremia likely secondary to heavy ETOH usage - management per medical services Hold antihypertensives for now DILLAN likely secondary to vol depletion and hypotension - continue careful IVF hydration Frequent non-syncopal falls d/t heavy ETOH intake and vol depletion Right humerus fracture seen on x-ray - management per medical services Monitor lab closely Replace electrolytes as indicated Continue tele Continue OAC with Eliquis for stroke prophylaxis D/c dig (rhythm intermittently appears to be junctional) Anemia of undetermined etiology - suspect GI bleed - advise GI consult for endoscopy - management per medical services We advise immediate and complete alcohol cessation LELO RODAS November 29, 2020 08:20
[2020-11-29 08:47] LABS: BILIRUBIN,TOTAL 0.4 MG/DL (0.1-1.0); CALCIUM 8.3 MG/DL (8.5-10.1); CREATININE SERUM 1.36 MG/DL (0.60-1.30); POTASSIUM 3.5 MMOL/L (3.6-5.0); TOTAL PROTEIN 6.4 GM/DL (6.4-8.2)
[2020-11-29] MEDS ORDERED: DIGOXIN 0.125 MG (LANOXIN) TAB PO SCH (09:00)
--- NOTE | 2020-11-29 09:31 | Short Stay Summary-Hospitalist ---
History of Present Illness HPI/Chief Complaint CC: Weakness HPI: This is a 55yoWM alcoholic who presented to the ER with produce hyponatremia and orthostatic hypotension with hgb that has been declining since overnight who reports he is feeling pretty well and hes not interested in any type of inpatient alcohol rehab. His hgb 8.4 suspicious for esophageal varicies bleeding his BP remains at 90. We will await for hemoccult since he is having dark stools. Source: patient, RN/MD, old records Exam Limitations: no limitations Date Seen 11/29/20 Time Seen by a Provider: 09:00 Attending Physician Lexi Childress DO [facility] Referring Physician Date of Admission November 28, 2020 at 12:23 Home Medications & Allergies Home Medications Reviewed patient Home Medication Reconciliation performed by pharmacy medication reconciliations counter intelligence technician and/or nursing. Patients Allergies have been reviewed. Allergies Allergies Coded Allergies No Known Drug Allergies (Unverified10/13/19) Past Eopqvzb-Omjmyi-Csebvc Hx Patient Social History Marrital Status: single Employed/Student: unemployed Tobacco Use?: No Smoking Status: Former Smoker Alcohol Use?: Yes Alcohol type: Beer Alcohol Frequency: Daily Seasonal Allergies Seasonal Allergies: No Current Status Communicates: Verbally Primary Language: Burmese Preferred Spoken Language: Burmese Is interpretation needed?: No Implanted or Applied Medical D: None Past Medical History Surgeries: Orthopedic Atrial Fibrillation, Chronic Edema/Swelling, Hypertension Cirrhosis Anxiety Family Medical History No Pertinent Family Hx Review of Systems Constitutional: see HPI Physical Exam Physical Exam Vital Signs Vital Signs - First Documented 11/28/20 11/28/20 11/30/20 10:06 14:00 01:00 Temp 36.1 Pulse 78 Resp 22 B/P (MAP) 123/74 (90) Pulse Ox 98 O2 Delivery Room Air O2 Flow Rate 2.00 Capillary Refill : Less Than 3 Seconds Height, Weight, BMI Height: '" Weight: lbs. oz. kg; 27.80 BMI Method: General Appearance: No Apparent Distress, WD/WN HEENT: PERRL/EOMI, Moist Mucous Membranes Neck: Normal Inspection, Non Tender Respiratory: Chest Non Tender, Lungs Clear, Normal Breath Sounds Cardiovascular: Regular Rate, Rhythm, No Edema, No Murmur Gastrointestinal: Normal Bowel Sounds, Non Tender, Soft Back: No CVA Tenderness, No Vertebral Tenderness Extremity: Normal Capillary Refill, Normal Inspection, Non Tender Neurologic/Psychiatric: Alert, Normal Mood/Affect Skin: Normal Color, Warm/Dry Lymphatic: No Adenopathy Results Results/Procedures Labs Laboratory Tests 11/28/20 10:20 11/28/20 19:00 11/29/20 01:32 11/29/20 08:15 11/29/20 13:50 11/30/20 02:23 Patient resulted labs reviewed. Short Stay Diagnosis Discharge Diagnosis-Short Stay Admission Diagnosis Assessment: Hyponatremia Orthostatic hypotension ETOHism with continued alcohol use DILLAN Anemia with dark stool reported Final Discharge Diagnosis Assessment: Hyponatremia Orthostatic hypotension ETOHism with continued alcohol use DILLAN Anemia with dark stool reported Conclusion Plan Dr Cunningham consult for decreased hgb and dark stools Monitor sodium Diagnosis/Problems Diagnosis/Problems (1) Orthostatic hypotension Status: Acute (2) Hyponatremia Status: Acute (3) Acute kidney injury Status: Acute (4) Anemia Status: Acute Qualifiers: Qualified Codes: D64.9 - Anemia, unspecified (5) Alcohol dependence Status: Acute Qualifiers: Qualified Codes: F10.29 - Alcohol dependence with unspecified alcohol- induced disorder LEXI CHILDRESS DO November 29, 2020 09:31
--- NOTE | 2020-11-29 10:31 | Pulmonary Progress Note ---
Subjective Date Seen by a Provider: November 29, 2020 Time Seen by a Provider: 09:50 Sepsis Event Evaluation Height, Weight, BMI Height: '" Weight: lbs. oz. kg; 27.80 BMI Method: Exam Exam Vital Signs Date Time Temp Pulse Resp B/P (MAP) Pulse Ox O2 Delivery O2 Flow Rate FiO2 11/29/20 10:04 71 118/65 (82) 74 106/60 (75) 75 85/55 (65) 11/29/20 10:00 69 17 118/65 (82) 99 Room Air 11/29/20 09:00 68 20 82/41 (55) 100 Room Air 11/29/20 08:00 70 14 93/56 (68) 98 Room Air 11/29/20 07:54 36.0 11/29/20 07:30 98 Room Air 11/29/20 07:00 63 11/29/20 07:00 64 12 107/72 (84) 99 Room Air 11/29/20 06:00 66 8 116/67 (83) 99 Room Air 11/29/20 05:00 66 10 105/95 (98) 98 Room Air 11/29/20 04:00 99 Room Air 11/29/20 04:00 68 11 110/57 (74) 100 Room Air 11/29/20 03:00 65 10 114/73 (87) 86 Room Air 11/29/20 02:00 66 15 106/68 (81) 100 Room Air 11/29/20 01:00 67 11/29/20 01:00 67 25 96/66 (76) 99 Room Air 11/29/20 00:00 99 Room Air 11/29/20 00:00 66 11 103/56 (72) 92 Room Air 11/28/20 23:00 62 8 117/74 (88) 100 Room Air 11/28/20 22:00 61 9 101/57 (72) 98 Room Air 11/28/20 21:00 62 13 102/57 (72) 99 Room Air 11/28/20 20:24 36.4 11/28/20 20:00 99 Room Air 11/28/20 20:00 61 14 87/54 (65) 97 Room Air 11/28/20 19:00 63 11 98/88 (91) 99 Room Air 11/28/20 19:00 61 11/28/20 18:00 62 15 94/53 (67) 100 Room Air 11/28/20 17:45 36.3 11/28/20 17:00 66 12 74/44 (54) 100 Room Air 11/28/20 14:16 65 11/28/20 14:15 64 25 123/79 (94) 100 Room Air 11/28/20 14:00 98 Room Air 11/28/20 13:15 65 20 92/62 98 11/28/20 10:49 71 109/66 (80) 76 104/54 (71) 81 73/58 (63) I & O 11/29/20 06:59 Intake Total 1325 ml Output Total 825 ml Balance 500 ml Height & Weight Height: '" Weight: lbs. oz. kg; 27.80 BMI Method: General Appearance: No Apparent Distress, WD/WN HEENT: PERRL/EOMI, Moist Mucous Membranes Neck: Normal Inspection, Non Tender Respiratory: Chest Non Tender, Lungs Clear, Normal Breath Sounds Cardiovascular: Regular Rate, Rhythm, No Edema, No Murmur Capillary Refill: Less Than 3 Seconds Extremity: Normal Capillary Refill, Normal Inspection, Non Tender Neurologic/Psychiatric: Alert, Normal Mood/Affect Skin: Normal Color, Warm/Dry Lymphatic: No Adenopathy Results Lab Laboratory Tests 11/28/20 10:20 11/28/20 19:00 11/29/20 01:32 11/29/20 08:15 Assessment/Plan Assessment/Plan Available chart/ vitals / labs / Images reviewed Video assessment done using teleICU camera Discussed with RN Events overnight : none Afebrile hemodynamically stable, no pressors, Consultants: cardio A/P Shock of undetermined etiology -probably hypovolemic,no evidence of sepsis , ?cardiogenic - cards do not think so -repeat orthostatics -check cortisol Hyponatremia - ? hypovolumic , ? ETOH . ? meds - improved from 120 to 128 in 22 h - will cont to monitor -check serum and urine osmolality, TSH -restriction of H20 nonICM, ETOH -Card cath of 10/17/19: LVEF 10%, global hypokinesis, LVEDP 44 mmHg, no significant CAD -Echo of 11/28/20: LVEF 50-55%, normal PASP on-syncopal falls d/t heavy ETOH intake and vol depletion - will follow orthostatics - on AC - consider CTH DILLAN - follow closely with volume status being replaced ETOH - last few month - moinitor for withdrawal , vitamins H/O multiple episodes of non-sustained VT on 10/14/19, treated with iv amiodarone, no recurrence Plans in collaboration with bedside consultants and IM MDs. Will discuss with Dr Howard - message left Discussed with RN to reach out if any questions or concerns MERARI CHRISTIANSEN MD November 29, 2020 10:31
[2020-11-29] MEDS: NS IV 1000 ML 1,000 ML IV SCH (11:04)
--- NOTE | 2020-11-29 12:13 | Progress Note - Cardiology ---
Cardiology SOAP Progress Note Subjective: Gen malaise and weakness, somewhat better No cp or palp or syncope or shortness of breath at rest No n/v/d Reports black-colored stools at home Objective: I&O/Vital Signs 11/29/20 11/29/20 11/29/20 11/29/20 01:00 01:00 02:00 03:00 Pulse 67 67 66 65 Resp 25 15 10 B/P (MAP) 96/66 (76) 106/68 (81) 114/73 (87) Pulse Ox 99 100 86 O2 Delivery Room Air Room Air Room Air 11/29/20 11/29/20 11/29/20 11/29/20 04:00 04:00 05:00 06:00 Pulse 68 66 66 Resp 11 10 8 B/P (MAP) 110/57 (74) 105/95 (98) 116/67 (83) Pulse Ox 100 99 98 99 O2 Delivery Room Air Room Air Room Air Room Air 11/29/20 11/29/20 11/29/20 11/29/20 07:00 07:00 07:30 07:54 Temp 36.0 Pulse 64 63 Resp 12 B/P (MAP) 107/72 (84) Pulse Ox 99 98 O2 Delivery Room Air Room Air 11/29/20 11/29/20 11/29/20 11/29/20 08:00 09:00 10:00 10:04 Pulse 70 68 69 71 74 75 Resp 14 20 17 B/P (MAP) 93/56 (68) 82/41 (55) 118/65 (82) 118/65 (82) 106/60 (75) 85/55 (65) Pulse Ox 98 100 99 O2 Delivery Room Air Room Air Room Air 11/29/20 11:00 Pulse 67 Resp 11 B/P (MAP) 106/61 (76) Pulse Ox 99 O2 Delivery Room Air 11/29/20 00:00 Intake Total 1025 ml Output Total 0 ml Balance 1025 ml Constitutional: AAO x 3, well-developed, well-nourished Respiratory: No accessory muscle use, No respiratory distress; chest expansion is symmetric, chest is bilaterally symmetric, lungs clear to auscultation Cardiovascular: irregularly irregular; No JVD; S1 and S2 Gastrointestional: No tender; soft, round, audible bowel sounds Extremities: no lower extremity edema bilateral Neurologic/Psychiatric: grossly intact (moves all extremities) Skin: No rash on exposed areas, No ulcerations on exposed areas Results/Procedures: Labs Laboratory Tests 11/28/20 19:00: Hemoglobin 8.2L, Hematocrit 23L, Sodium Level 124*L, Potassium Level 3.3L, Chloride Level 92L, Carbon Dioxide Level 22, Anion Gap 10, Blood Urea Nitrogen 12, Creatinine 1.57H, Estimat Glomerular Filtration Rate 46, BUN/Creatinine Ratio 8, Glucose Level 114H, Calcium Level 8.2L 11/29/20 01:32: Hemoglobin 8.4L, Hematocrit 24L, Sodium Level 126L, Potassium Level 3.8, Chloride Level 96L, Carbon Dioxide Level 21, Anion Gap 9, Blood Urea Nitrogen 12, Creatinine 1.47H, Estimat Glomerular Filtration Rate 50, BUN/Creatinine Ratio 8, Glucose Level 108H, Calcium Level 8.2L, White Blood Count 8.1, Red Blood Count 2.37L, Mean Corpuscular Volume 102H, Mean Corpuscular Hemoglobin 35H , Mean Corpuscular Hemoglobin Concent 35, Red Cell Distribution Width 14.5, Platelet Count 219, Mean Platelet Volume 9.2, Immature Granulocyte % (Auto) 2, Neutrophils (%) (Auto) 72, Lymphocytes (%) (Auto) 16, Monocytes (%) (Auto) 8, Eosinophils (%) (Auto) 2, Basophils (%) (Auto) 1, Neutrophils # (Auto) 5.8, Lymphocytes # (Auto) 1.3, Monocytes # (Auto) 0.7, Eosinophils # (Auto) 0.1, Basophils # (Auto) 0.1, Immature Granulocyte # (Auto) 0.2H, Phosphorus Level 2.9, Magnesium Level 2.5H 11/29/20 08:15: Sodium Level 128L, Potassium Level 3.5L, Chloride Level 97L, Carbon Dioxide Level 22, Anion Gap 9, Blood Urea Nitrogen 10, Creatinine 1.36H, Estimat Glomerular Filtration Rate 54, BUN/Creatinine Ratio 7, Glucose Level 132H, Calcium Level 8.3L, Corrected Calcium 8.3L, Total Bilirubin 0.4, Aspartate Amino Transf (AST/SGOT) 45H, Alanine Aminotransferase (ALT/SGPT) 49, Alkaline Phosphatase 52, Total Protein 6.4, Albumin 4.0 A/P: Assessment: Shock, probably hypovolemic (probably partly related to GI bleed), also consider septic. No evidence of cardiogenic shock Anemia and h/o blackish stools. Suspect slow GI bleed, being managed by the Med [facility] DILLAN 2, likely due ATN due to hypotension - renal function improving Hyponatremia likely secondary to ETOH abuse - improving Reports heavy ETOH usage over the last 5 months H/o alcohol-related, nonischemic, dilated cardiomyopathy - Echo of 10/14/19: LVEF 10-15%. - Card cath of 10/17/19: LVEF 10%, global hypokinesis, LVEDP 44 mmHg, no significant CAD - MUGA of Mar 01, 2020 showed mild to mod hypokinesis with LVEF 38% - Echo of May 03, 2020: LVEF 40-45%. Mild diffuse hypokinesis. PASP 35-40mmHg - Echo of 11/28/20: LVEF 50-55%, normal PASP PAF. On apixaban for stroke prophylaxis Plan: We recommend a GI w/u because of suspected GI bleed. Management is with the [facility]...Exactly Watch for alcohol withdrawal syndrome - management per Medical Services Hold antihypertensives for now DILLAN likely secondary to vol depletion and hypotension - continue careful IVF hydration Right humerus fracture seen on x-ray - management per [facility] Monitor lab closely Replace electrolytes as indicated Continue tele Continue OAC with Eliquis for stroke prophylaxis D/c dig (rhythm intermittently appears to be junctional) We advise immediate and complete alcohol cessation Dr Chin covering Cardiology until morning of 12/02/20 CHRISTOPHER MULLEN MD FACP FAC CCDS November 29, 2020 12:13
--- NOTE | 2020-11-29 12:15 | Cardiac Procedure Note-CS/ASA ---
Pre-Procedure Note Pre-Op Procedure Note H&P Reviewed The H&P was reviewed, patient examined and no changes noted. Date H&P Reviewed: November 29, 2020 Time H&P Reviewed: 08:05 Conscious Sedation Pre-Proced Time 08:05 ASA Score 3 For ASA 3 and 4: Consider anesthesia and medical clearance. Also, for patients with a history of failed moderate sedation consider anesthesia. Airway Lungs Heart ASA score ASA 1: a normal healthy patient ASA 2: a patient with a mild systemic disease (mid diabetes, controlled hypertension, obesity ASA 3: a patient with a severe systemic disease that limits activity (angina, COPD, prior Myocardial infarction) ASA 4: a patient with an incapacitating disease that is a constant threat to life (CHF, renal failure) ASA 5: a moribund patient not expected to survive 24 hrs. (ruptured aneurysm) ASA 6: a declared brain- patient whose organs are being harvested. For emergent operations, add the letter E after the classification Mallampati Classification Grade 2 Sedation Plan Analgesia, Amnesia, Plan communicated to team members, Discussed options with patient/fam, Discussed risks with patient/fam The patient is an appropriate candidate to undergo the planned procedure, sedation, and anesthesia. The patient immediately re-assessed prior to indication. CHRISTOPHER MULLEN MD FACP FAC CCDS November 29, 2020 12:15
--- NOTE | 2020-11-29 14:17 | Consultation - Surgery ---
History of Present Illness History of Present Illness Patient Consulted On(negrito/time) 11/29/20 14:17 Date Seen by Provider: November 29, 2020 Time Seen by Provider: 14:17 History of Present Illness Consult requested by Dr. Childress for possible GI bleed. Patient is a 55-year-old male with history of alcohol dependence use approximately 1 year ago. Patient ceased his alcohol use but then approximately 5 months ago began drinking again. Patient was having orthostatic hypotension and was falling and decided he needed to go to the emergency department for further evaluation. Patient states he has little bit of pain in the right arm when she has a humerus fracture he states. Patient has proximal last for 5 days at home noticed some dark stools as well. He sees no gross blood. He has no abdominal pain. Patient hemoglobin had slight drop to 8 range. He is on Eliquis which he has been receiving for stroke prophylaxis. Currently patient is n.p.o. Patient has no other complaints at this time. Denies any nausea vomiting fever sweats chills shortness of breath or chest pain at this time. Allergies and Home Medications Allergies Coded Allergies: No Known Drug Allergies (Unverified , 10/13/19) Home Medications Amiodarone HCl 200 Mg Tablet, 200 MG PO DAILY, (Reported) Last Action: Continued Apixaban 5 Mg Tablet, 5 MG PO BID, (Reported) Last Action: Continued Aspirin 81 Mg Tablet.dr, 81 MG PO DAILY, (Reported) Last Action: Held Digoxin 125 Mcg Tablet, 125 MCG PO DAILY, (Reported) Last Action: Continued Diphenhydramine HCl 25 Mg Tablet, 25-50 MG PO HS PRN for SLEEP, (Reported) Last Action: Held Furosemide 40 Mg Tablet, 40 MG PO BID, (Reported) Last Action: Held Metoprolol Succinate 50 Mg Tab.er.24h, 50 MG PO DAILY, (Reported) Last Action: Held Potassium Chloride 10 Meq Tab.er.prt, 10 MEQ PO BID, (Reported) Last Action: Held Sacubitril/Valsartan 1 Each Tablet, 1 TAB PO BID, (Reported) Last Action: Held Spironolactone 25 Mg Tablet, 25 MG PO DAILY, (Reported) Last Action: Held Patient Home Medication List Home Medication List Reviewed: Yes Past [id number] Hx Patient Social History Number of Drinks Today: AA Smoking Status: Former Smoker Former Smoker, Quit: November 20, 1997 2nd Hand Smoke Exposure: No Recent Hopitalizations: No Alcohol Use?: Yes Have you traveled recently?: No Seasonal Allergies Seasonal Allergies: No Surgeries History of Surgeries: Yes (R LEG) Surgeries: Orthopedic Respiratory History of Respiratory Disorde: No Cardiovascular History of Cardiac Disorders: Yes Cardiac Disorders: Atrial Fibrillation, Chronic Edema/Swelling, Hypertension Neurological History of Neurological Disord: No Genitourinary History of Genitourinary Disor: No Gastrointestinal History of Gastrointestinal Di: No Musculoskeletal History of Musculoskeletal Dis: No Endocrine History of Endocrine Disorders: No HEENT History of HEENT Disorders: No Cancer History of Cancer: No Psychosocial History of Psychiatric Problem: Yes Behavioral Health Disorders: Anxiety Integumentary History of Skin or Integumenta: No Reviewed Nursing Assessment Reviewed/Agree w Nursing PMH: Yes Family Medical History Significant Family History: No Pertinent Family Hx Review of Systems-General Constitutional: No chills, No diaphoresis EENTM: No blurred vision, No double vision Respiratory: No cough, No dyspnea on exertion Cardiovascular: No chest pain, No palpitations Gastrointestinal: No abdominal pain; melena Genitourinary: No decreased output, No discharge Musculoskeletal: No back pain, No joint pain Skin: No change in color, No change in hair/nails Psychiatric/Neurological: Denies Anxiety, Denies Depressed, Denies Emotional Problems All Other Systems Reviewed Negative Unless Noted: Yes (Negative excepted noted.) Physical Exam-General Problems Physical Exam Vital Signs Vital Signs - First Documented 11/28/20 11/28/20 10:06 14:00 Temp 36.1 Pulse 78 Resp 22 B/P (MAP) 123/74 (90) Pulse Ox 98 O2 Delivery Room Air Capillary Refill : Less Than 3 Seconds General Appearance: no apparent distress HEENT: No PERRL/EOMI (Left pupil 8 mm and reactive right pupil 3 mm and reactive extraocular movements intact); normal ENT inspection Neck: non-tender, supple Respiratory: chest non-tender, no respiratory distress, no accessory muscle use Cardiovascular: no JVD, irregularly irregular Gastrointestinal: non tender, soft, no organomegaly, no pulsatile mass Rectal: deferred Back: no CVA tenderness, no vertebral tenderness Extremities: no pedal edema, no calf tenderness, other (Right upper arm tenderness) Neurologic/Psychiatric: no motor/sensory deficits, alert, normal mood/affect, oriented x 3 Skin: normal color, warm/dry Lymphatic: no adenopathy Data Review Labs Laboratory Tests 11/28/20 19:00: Hemoglobin 8.2L, Hematocrit 23L, Sodium Level 124*L, Potassium Level 3.3L, Chloride Level 92L, Carbon Dioxide Level 22, Anion Gap 10, Blood Urea Nitrogen 12, Creatinine 1.57H, Estimat Glomerular Filtration Rate 46, BUN/Creatinine Ratio 8, Glucose Level 114H, Calcium Level 8.2L 11/29/20 01:32: Hemoglobin 8.4L, Hematocrit 24L, Sodium Level 126L, Potassium Level 3.8, Chloride Level 96L, Carbon Dioxide Level 21, Anion Gap 9, Blood Urea Nitrogen 12, Creatinine 1.47H, Estimat Glomerular Filtration Rate 50, BUN/Creatinine Ratio 8, Glucose Level 108H, Calcium Level 8.2L, White Blood Count 8.1, Red Blood Count 2.37L, Mean Corpuscular Volume 102H, Mean Corpuscular Hemoglobin 35H , Mean Corpuscular Hemoglobin Concent 35, Red Cell Distribution Width 14.5, Platelet Count 219, Mean Platelet Volume 9.2, Immature Granulocyte % (Auto) 2, Neutrophils (%) (Auto) 72, Lymphocytes (%) (Auto) 16, Monocytes (%) (Auto) 8, Eosinophils (%) (Auto) 2, Basophils (%) (Auto) 1, Neutrophils # (Auto) 5.8, Lymphocytes # (Auto) 1.3, Monocytes # (Auto) 0.7, Eosinophils # (Auto) 0.1, Basophils # (Auto) 0.1, Immature Granulocyte # (Auto) 0.2H, Phosphorus Level 2.9, Magnesium Level 2.5H 11/29/20 08:15: Sodium Level 128L, Potassium Level 3.5L, Chloride Level 97L, Carbon Dioxide Level 22, Anion Gap 9, Blood Urea Nitrogen 10, Creatinine 1.36H, Estimat G lomerular Filtration Rate 54, BUN/Creatinine Ratio 7, Glucose Level 132H, Calcium Level 8.3L, Corrected Calcium 8.3L, Total Bilirubin 0.4, Aspartate Amino Transf (AST/SGOT) 45H, Alanine Aminotransferase (ALT/SGPT) 49, Alkaline Phosphatase 52, Total Protein 6.4, Albumin 4.0 11/29/20 13:50: Assessment/Plan Assessment/Plan Assessment/Plan Orthostatic hypotension Melena Long-term anticoagulation History/current alcohol abuse Right humerus fracture Anemia Alcohol induced nonischemic cardiomyopathy Dilated left pupil compared to right. Patient 55-year-old male with history of alcohol abuse with current use. Discussed need for cessation patient understands. Patient with slight drop of hemoglobin in the 8 range. He is currently on long-term anticoagulation with Eliquis. Currently receiving. Patient if continues to remain stable okay to continue Eliquis. If begins dropping would hold. Patient is on Protonix twice daily. Currently n.p.o. Patient if remains stable would start on clears. Would recommend endoscopy as outpatient and will need to hold anticoagulation. If continues to drop and we hold anticoagulation could proceed with endoscopy while inpatient if needed. Patient to continue to have neuro tracks per protocol of unit. Will get CT of the head due to change in left pupil. RACHELLE OSBORNE DO November 29, 2020 14:17
[2020-11-29 14:19] LABS: INR 1.4 (0.8-1.4); PROTHROMBIN TIME PATIENT 17.9 SEC (12.2-14.7)
[2020-11-29 14:23] LABS: BASOPHILS % (AUTO) 1 % (0-10); EOSINOPHILS # (AUTO) 0.2 10^3/uL (0.0-0.3); EOSINOPHILS % (AUTO) 2 % (0-10); HEMATOCRIT 23 % (40-54); HEMOGLOBIN 8.1 g/dL (13.3-17.7); LYMPHOCYTES # (AUTO) 1.2 10^3/uL (1.0-4.0); LYMPHOCYTES % (AUTO) 16 % (12-44); MEAN CORPUSCULAR HEMOGLOBIN 37 pg (25-34); MEAN CORPUSCULAR HGB CONC 36 g/dL (32-36); MEAN CORPUSCULAR VOLUME 102 fL (80-99); MEAN PLATELET VOLUME 8.7 fL (9.0-12.2); MONOCYTES # (AUTO) 0.7 10^3/uL (0.0-1.0); MONOCYTES % (AUTO) 10 % (0-12); NEUTROPHILS # (AUTO) 5.2 10^3/uL (1.8-7.8); NEUTROPHILS % (AUTO) 69 % (42-75); PLATELET COUNT 203 10^3/uL (130-400); WHITE BLOOD COUNT 7.5 10^3/uL (4.3-11.0)
[2020-11-29 14:26] LABS: CALCIUM 8.1 MG/DL (8.5-10.1); CREATININE SERUM 1.28 MG/DL (0.60-1.30); POTASSIUM 3.6 MMOL/L (3.6-5.0)
--- NOTE | 2020-11-29 20:20 | Diagnostic Imaging Report ---
PROCEDURE: CT head without contrast. TECHNIQUE: Multiple contiguous axial images were obtained through the brain without the use of intravenous contrast. Auto Exposure Controls were utilized during the CT exam to meet ALARA standards for radiation dose reduction. INDICATION: Orthostatic hypotension and dizziness. FINDINGS: There is prominence of the ventricles and sulci. There is no hydrocephalus or cerebral edema. There is no midline shift or mass-effect. There is no intracranial mass, hemorrhage or extra-axial fluid collection. There is some diffuse decreased attenuation of the periventricular white matter which is nonspecific. The visualized paranasal sinuses and mastoid air cells are clear. There is no regional area of decreased attenuation appreciated to suggest an acute CVA. IMPRESSION: 1. No acute intracranial process. 2. Age-appropriate atrophy. 3. Decreased attenuation of the periventricular white matter which is nonspecific, however, likely reflects senescent change and/or chronic small vessel ischemic disease. Dictated by: Dictated on workstation # [id number]
[2020-11-30] VITALS (19 sets, daily range): BP systolic 102–147; BP diastolic 26–89
[2020-11-30 02:52] LABS: BASOPHILS # (AUTO) 0.1 10^3/uL (0.0-0.1); BASOPHILS % (AUTO) 1 % (0-10); EOSINOPHILS # (AUTO) 0.3 10^3/uL (0.0-0.3); EOSINOPHILS % (AUTO) 4 % (0-10); HEMATOCRIT 24 % (40-54); HEMOGLOBIN 8.4 g/dL (13.3-17.7); LYMPHOCYTES # (AUTO) 1.5 10^3/uL (1.0-4.0); LYMPHOCYTES % (AUTO) 20 % (12-44); MEAN CORPUSCULAR HEMOGLOBIN 36 pg (25-34); MEAN CORPUSCULAR HGB CONC 34 g/dL (32-36); MEAN CORPUSCULAR VOLUME 103 fL (80-99); MEAN PLATELET VOLUME 8.7 fL (9.0-12.2); MONOCYTES # (AUTO) 0.6 10^3/uL (0.0-1.0); MONOCYTES % (AUTO) 8 % (0-12); NEUTROPHILS # (AUTO) 4.8 10^3/uL (1.8-7.8); NEUTROPHILS % (AUTO) 65 % (42-75); PLATELET COUNT 189 10^3/uL (130-400); WHITE BLOOD COUNT 7.3 10^3/uL (4.3-11.0)
[2020-11-30 03:08] LABS: CHLORIDE 99 MMOL/L (98-107); POTASSIUM 3.3 MMOL/L (3.6-5.0); SODIUM 131 MMOL/L (135-145)
[2020-11-30 03:09] LABS: CALCIUM 8.1 MG/DL (8.5-10.1); GLUCOSE 97 MG/DL (70-105)
[2020-11-30 03:11] LABS: CARBON DIOXIDE 19 MMOL/L (21-32)
[2020-11-30 03:13] LABS: CREATININE SERUM 1.06 MG/DL (0.60-1.30); GFR ESTIMATED > 60
[2020-11-30 03:14] LABS: BUN/CREATININE RATIO 7
[2020-11-30 03:16] LABS: MAGNESIUM 2.4 MG/DL (1.6-2.4)
[2020-11-30] MEDS: MAGNESIUM 1 GM/100 ML IVPB 100 ML IV SCH (04:52)
[2020-11-30] MEDS: POTASSIUM CL 10MEQ/50ML IVPB 50 ML IV SCH ×5 (04:52→09:29)
[2020-11-30] MEDS: KCL 20 MEQ TAB (K-DUR) PO SCH (04:52)
[2020-11-30] MEDS: NS IV 1000 ML 1,000 ML IV SCH (06:04)
[2020-11-30] MEDS: THIAMINE 100 MG (VITAMIN B-1) TAB PO SCH (06:04)
[2020-11-30] MEDS: MULTIVIT W/MINERALS TAB (THERAGRAN M) PO SCH (06:04)
[2020-11-30] MEDS: FAMOTIDINE 20 MG (PEPCID) TABLET PO SCH ×2 (07:54→19:19)
[2020-11-30] MEDS: FOLIC ACID 1 MG TAB PO SCH (07:54)
[2020-11-30] MEDS: AMIODARONE 200 MG (CORDARONE) TAB PO SCH (07:54)
[2020-11-30] MEDS: MAGNESIUM OXIDE (MAG-OX)400 MG TAB PO SCH ×2 (07:54→19:19)
--- NOTE | 2020-11-30 08:13 | Progress Note - Hospitalist ---
Subjective HPI/CC On Admission Date Seen by Provider: November 30, 2020 Time Seen by Provider: 11:00 CC: Weakness HPI: This is a 55yoWM alcoholic who presented to the ER with produce hyponatremia and orthostatic hypotension with hgb that has been declining since overnight who reports he is feeling pretty well and hes not interested in any type of inpatient alcohol rehab. His hgb 8.4 suspicious for esophageal varicies bleeding his BP remains at 90. We will await for hemoccult since he is having dark stools. Subjective/Events-last exam Patient doing much better Moving to fourth floor Difference in pupil size no change in CT scan normal Patient a bit anxious and tearful Check meds and labs Electrolytes improved and hemoglobin stable Hemoccult is negative Review of Systems General: Fatigue, Malaise Objective Exam Vital Signs Vital Signs Date Time Temp Pulse Resp B/P (MAP) Pulse Ox O2 Delivery O2 Flow Rate FiO2 12/01/20 04:07 35.9 68 18 129/85 (100) 98 Room Air 11/30/20 07:00 2.00 Capillary Refill : Less Than 3 Seconds General Appearance: No Apparent Distress, WD/WN, Chronically ill Respiratory: Lungs Clear Cardiovascular: Regular Rate, Rhythm Neurologic/Psychiatric: Alert, Oriented x3 Results/Procedures Lab Laboratory Tests 12/01/20 04:16 Patient resulted labs reviewed. Assessment/Plan Assessment and Plan Assess & Plan/Chief Complaint Assessment: Severe hyponatremia Alcoholism Anemia Alcohol cirrhosis Anisocoria Plan: Dr Cunningham consult for decreased hgb and dark stools Monitor sodium 11/30/2020: Monitor electrolytes Monitor hemoglobin Diagnosis/Problems Diagnosis/Problems (1) Orthostatic hypotension Status: Acute (2) Hyponatremia Status: Acute (3) Acute kidney injury Status: Acute (4) Anemia Status: Acute Qualifiers: Anemia type: unspecified type Qualified Codes: D64.9 - Anemia, unspecified (5) Alcohol dependence Status: Acute Qualifiers: Substance use status: unspecified alcohol-induced disorder Qualified Codes: F10.29 - Alcohol dependence with unspecified alcohol-induced disorder CAITY MCKENZIE DO November 30, 2020 08:13
--- NOTE | 2020-11-30 09:54 | Progress Note ---
Progress Note Assessment/Plan Date Seen by Provider: November 30, 2020 Events since last exam video rounds completed 55 y/o male admitted with hyponatremia and orthostasis. hx of etoh PE: very comfortable sitting up in bed HR: 69 NSR BP: 117/63 Na 126 this am Assessment/Plan Orthostatic hypotension Melena Long-term anticoagulation History/current alcohol abuse Right humerus fracture Anemia Alcohol induced nonischemic cardiomyopathy Dilated left pupil compared to right. Patient 55-year-old male with history of alcohol abuse with current use. D iscussed need for cessation patient understands. Patient with slight drop of hemoglobin in the 8 range. He is currently on long-term anticoagulation with Eliquis. Currently receiving. Patient if continues to remain stable okay to continue Eliquis. If begins dropping would hold. Patient is on Protonix twice daily. Currently n.p.o. Patient if remains stable would start on clears. Would recommend endoscopy as outpatient and will need to hold anticoagulation. If continues to drop and we hold anticoagulation could proceed with endoscopy while inpatient if needed. Patient to continue to have neuro tracks per protocol of unit. Will get CT of the head due to change in left pupil. Vitals Last set of Vitals Signs Vital Signs Date Time Temp Pulse Resp B/P (MAP) Pulse Ox O2 Delivery O2 Flow Rate FiO2 11/30/20 08:00 75 18 128/73 (91) 100 Room Air 11/30/20 07:53 36.1 11/30/20 07:00 2.00 I&O I&O Intake and Output 11/29/20 23:59 Intake Total 742 ml Output Total 1650 ml Balance -908 ml Intake Oral 542 ml IV Total 200 ml Output Urine Total 1650 ml Labs Laboratory Tests 11/29/20 13:50: White Blood Count 7.5, Red Blood Count 2.21L, Hemoglobin 8.1L, Hematocrit 23L, Mean Corpuscular Volume 102H, Mean Corpuscular Hemoglobin 37H, Mean Corpuscular Hemoglobin Concent 36, Red Cell Distribution Width 14.6H, Platelet Count 203, Me an Platelet Volume 8.7L, Immature Granulocyte % (Auto) 3, Neutrophils (%) (Auto) 69, Lymphocytes (%) (Auto) 16, Monocytes (%) (Auto) 10, Eosinophils (%) (Auto) 2, Basophils (%) (Auto) 1, Neutrophils # (Auto) 5.2, Lymphocytes # (Auto) 1.2, Monocytes # (Auto) 0.7, Eosinophils # (Auto) 0.2, Basophils # (Auto) 0.0, Immature Granulocyte # (Auto) 0.2H, Prothrombin Time 17.9H, INR Comment 1.4, Sodium Level 128L, Potassium Level 3.6, Chloride Level 97L, Carbon Dioxide Level 25, Anion Gap 6, Blood Urea Nitrogen 9, Creatinine 1.28, Estimat Glomerular Filtration Rate 58, BUN/Creatinine Ratio 7, Glucose Level 90, Serum Osmolality 263L, Calcium Level 8.1L, Total Cortisol 6.0 11/29/20 17:03: Stool Occult Blood Immunoassay NEGATIVE 11/30/20 02:23: White Blood Count 7.3, Red Blood Count 2.36L, Hemoglobin 8.4L, Hematocrit 24L, Mean Corpuscular Volume 103H, Mean Corpuscular Hemoglobin 36H, Mean Corpuscular Hemoglobin Concent 34, Red Cell Distribution Width 14.6H, Platelet Count 189, Mean Platelet Volume 8.7L, Immature Granulocyte % (Auto) 3, Neutrophils (%) (Auto) 65, Lymphocytes (%) (Auto) 20, Monocytes (%) (Auto) 8, Eosinophils (%) (Auto) 4, Basophils (%) (Auto) 1, Neutrophils # (Auto) 4.8, Lymphocytes # (Auto) 1.5, Monocytes # (Auto) 0.6, Eosinophils # (Auto) 0.3, Basophils # (Auto) 0.1, Immature Granulocyte # (Auto) 0.2H, Sodium Level 131L, Potassium Level 3.3L, Chloride Level 99, Carbon Dioxide Level 19L, Anion Gap 13, Blood Urea Nitrogen 7, Creatinine 1.06, Estimat Glomerular Filtration Rate > 60, BUN/Creatinine Ratio 7, Glucose Level 97, Calcium Level 8.1L, Phosphorus Level 3.0, Magnesium Level 2.4 TRAVIS GIRALDO MD November 30, 2020 09:54
--- NOTE | 2020-11-30 15:10 | Progress Note - Surgery ---
Subjective Date Seen by a Provider: November 30, 2020 Time Seen by a Provider: 08:30 Subjective/Events-last exam Patient tolerating clear liquids. Patient hemoglobin up to 8.4. Patient denies any bloody stools. No abdominal pain. Denies any new complaints. Denies any nausea vomiting fever sweats chills shortness of breath or chest pain. Objective Exam Vital Signs Date Time Temp Pulse Resp B/P (MAP) Pulse Ox O2 Delivery O2 Flow Rate FiO2 11/30/20 13:00 36.0 64 20 112/76 (88) 100 Room Air 11/30/20 13:00 77 11/30/20 12:00 100 Room Air 11/30/20 12:00 69 21 137/73 (94) 100 Room Air 11/30/20 11:00 69 10 118/70 (86) 99 Room Air 11/30/20 10:00 80 18 128/66 (86) 95 Room Air 11/30/20 09:00 82 13 117/63 (81) 100 Room Air 11/30/20 08:00 75 18 128/73 (91) 100 Room Air 11/30/20 07:53 36.1 Room Air 11/30/20 07:51 100 Room Air 11/30/20 07:00 67 11/30/20 07:00 70 12 105/89 (94) 100 Nasal Cannula 2.00 11/30/20 06:00 69 17 127/54 (78) 99 Nasal Cannula 2.00 11/30/20 05:00 71 16 124/74 (91) 100 Nasal Cannula 2.00 11/30/20 04:00 36.2 11/30/20 04:00 98 Nasal Cannula 2.00 11/30/20 04:00 70 15 118/76 (90) 96 Nasal Cannula 2.00 11/30/20 03:00 69 13 134/78 (96) 100 Nasal Cannula 2.00 11/30/20 02:00 69 13 123/76 (92) 99 Nasal Cannula 2.00 11/30/20 01:00 69 13 112/73 (86) 97 Nasal Cannula 2.00 11/30/20 01:00 71 11/30/20 00:00 66 15 119/67 (84) 99 Room Air 11/29/20 23:55 36.0 11/29/20 23:54 98 Room Air 11/29/20 23:00 66 13 118/71 (87) 99 Room Air 11/29/20 22:00 67 13 121/67 (85) 98 Room Air 11/29/20 21:00 65 14 116/70 (85) 100 Room Air 11/29/20 20:00 71 13 111/68 (82) 100 Room Air 11/29/20 20:00 98 Room Air 11/29/20 19:23 36.0 11/29/20 19:00 68 16 120/76 (91) 98 Room Air 11/29/20 19:00 69 11/29/20 18:00 70 29 120/69 (86) 90 Room Air 11/29/20 17:00 89 22 116/74 (88) 99 Room Air 11/29/20 16:00 73 16 114/65 (81) 100 Room Air 11/29/20 16:00 36.0 11/29/20 16:00 98 Room Air I & O 11/30/20 07:00 Intake Total 814 ml Output Total 1825 ml Balance -1011 ml Capillary Refill : Less Than 3 Seconds General Appearance: No Apparent Distress, WD/WN HEENT: PERRL/EOMI, Moist Mucous Membranes Neck: Normal Inspection, Non Tender Respiratory: Chest Non Tender, Lungs Clear, Normal Breath Sounds Cardiovascular: Regular Rate, Rhythm, No Edema, No Murmur Gastrointestinal: non tender, soft, no organomegaly, no pulsatile mass Extremity: Normal Capillary Refill, Normal Inspection, Non Tender Neurologic/Psychiatric: Alert, Normal Mood/Affect Skin: Normal Color, Warm/Dry Lymphatic: No Adenopathy Results Lab Laboratory Tests 11/29/20 17:03: Stool Occult Blood Immunoassay NEGATIVE 11/30/20 02:23: White Blood Count 7.3, Red Blood Count 2.36L, Hemoglobin 8.4L, Hematocrit 24L, Mean Corpuscular Volume 103H, Mean Corpuscular Hemoglobin 36H, Mean Corpuscular Hemoglobin Concent 34, Red Cell Distribution Width 14.6H, Platelet Count 189, Mean Platelet Volume 8.7L, Immature Granulocyte % (Auto) 3, Neutrophils (%) (Auto) 65, Lymphocytes (%) (Auto) 20, Monocytes (%) (Auto) 8, Eosinophils (%) (Auto) 4, Basophils (%) (Auto) 1, Neutrophils # (Auto) 4.8, Lymphocytes # (Auto) 1.5, Monocytes # (Auto) 0.6, Eosinophils # (Auto) 0.3, Basophils # (Auto) 0.1, Immature Granulocyte # (Auto) 0.2H, Sodium Level 131L, Potassium Level 3.3L, Chloride Level 99, Carbon Dioxide Level 19L, Anion Gap 13, Blood Urea Nitrogen 7, Creatinine 1.06, Estimat Glomerular Filtration Rate > 60, BUN/Creatinine Ratio 7, Glucose Level 97, Calcium Level 8.1L, Phosphorus Level 3.0, Magnesium Level 2.4 Assessment/Plan Assessment/Plan Assessment/Plan Orthostatic hypotension Melena Long-term anticoagulation History/current alcohol abuse Right humerus fracture Anemia Alcohol induced nonischemic cardiomyopathy Dilated left pupil compared to right. Patient 55-year-old male with history of alcohol abuse with current use. Discussed need for cessation patient understands. Patient hemoglobin stable. He is currently on long-term anticoagulation with Eliquis. Patient if continues to remain stable okay to continue Eliquis. If begins dropping would hold. Patient is on Protonix twice daily. Tolerating clears can advance. Would recommend endoscopy as outpatient and will need to hold anticoagulation. If continues to drop and we hold anticoagulation could proceed with endoscopy while inpatient if needed. CT scan of the head did not show any acute process.. Clinical Quality Measures DVT/VTE Risk/Contraindication: Contraindications-Pharm: Other *list below* Other: cirrhosis with active etoh consumption with falls and anemia RACHELLE OSBORNE DO November 30, 2020 15:10
--- NOTE | 2020-11-30 17:03 | Cardiology Progress Note ---
Cardiology SOAP Progress Note Subjective: Generalized weakness. Objective: I&O/Vital Signs 11/30/20 11/30/20 11/30/20 11/30/20 06:00 07:00 07:00 07:51 Pulse 69 70 67 Resp 17 12 B/P (MAP) 127/54 (78) 105/89 (94) Pulse Ox 99 100 100 O2 Delivery Nasal Cannula Nasal Cannula Room Air O2 Flow Rate 2.00 2.00 11/30/20 11/30/20 11/30/20 11/30/20 07:53 08:00 09:00 10:00 Temp 36.1 Pulse 75 82 80 Resp 18 13 18 B/P (MAP) 128/73 (91) 117/63 (81) 128/66 (86) Pulse Ox 100 100 95 O2 Delivery Room Air Room Air Room Air Room Air 11/30/20 11/30/20 11/30/20 11/30/20 11:00 12:00 12:00 13:00 Pulse 69 69 77 Resp 10 21 B/P (MAP) 118/70 (86) 137/73 (94) Pulse Ox 99 100 100 O2 Delivery Room Air Room Air Room Air 11/30/20 11/30/20 13:00 14:00 Temp 36.0 36.0 Pulse 64 64 Resp 20 20 B/P (MAP) 112/76 (88) 112/76 (88) Pulse Ox 100 100 O2 Delivery Room Air Room Air 11/29/20 23:59 Intake Total 222 ml Output Total 475 ml Balance -253 ml Constitutional: AAO x 3, well-developed, well-nourished Respiratory: No accessory muscle use, No respiratory distress; chest expansion is symmetric, chest is bilaterally symmetric, lungs clear to auscultation Cardiovascular: irregularly irregular; No JVD; S1 and S2 Gastrointestional: No tender; soft, round, audible bowel sounds Extremities: no lower extremity edema bilateral Neurologic/Psychiatric: grossly intact (moves all extremities) Skin: No rash on exposed areas, No ulcerations on exposed areas Results/Procedures: Labs Laboratory Tests 11/29/20 17:03: Stool Occult Blood Immunoassay NEGATIVE 11/30/20 02:23: White Blood Count 7.3, Red Blood Count 2.36L, Hemoglobin 8.4L, Hematocrit 24L, Mean Corpuscular Volume 103H, Mean Corpuscular Hemoglobin 36H, Mean Corpuscular Hemoglobin Concent 34, Red Cell Distribution Width 14.6H, Platelet Count 189, Mean Platelet Volume 8.7L, Immature Granulocyte % (Auto) 3, Neutrophils (%) (Auto) 65, Lymphocytes (%) (Auto) 20, Monocytes (%) (Auto) 8, Eosinophils (%) (Auto) 4, Basophils (%) (Auto) 1, Neutrophils # (Auto) 4.8, Lymphocytes # (Auto) 1.5, Monocytes # (Auto) 0.6, Eosinophils # (Auto) 0.3, Basophils # (Auto) 0.1, Immature Granulocyte # (Auto) 0.2H, Sodium Level 131L, Potassium Level 3.3L, Chloride Level 99, Carbon Dioxide Level 19L, Anion Gap 13, Blood Urea Nitrogen 7, Creatinine 1.06, Estimat Glomerular Filtration Rate > 60, BUN/Creatinine Ratio 7, Glucose Level 97, Calcium Level 8.1L, Phosphorus Level 3.0, Magnesium Level 2.4 A/P: Assessment/Dx: Shock, probably hypovolemic (probably partly related to GI bleed), also consider septic. No evidence of cardiogenic shock. Resolved Anemia and h/o blackish stools. Suspect slow GI bleed, being managed by [facility] 2, likely due ATN due to hypotension - renal function improving Hyponatremia likely secondary to ETOH abuse - improving Reports heavy ETOH usage over the last 5 months H/o alcohol-related, nonischemic, dilated cardiomyopathy - Echo of 10/14/19: LVEF 10-15%. - Card cath of 10/17/19: LVEF 10%, global hypokinesis, LVEDP 44 mmHg, no significant CAD - MUGA of Mar 01, 2020 showed mild to mod hypokinesis with LVEF 38% - Echo of May 03, 2020: LVEF 40-45%. Mild diffuse hypokinesis. PASP 35-40mmHg - Echo of 11/28/20: LVEF 50-55%, normal PASP PAF. On apixaban for stroke prophylaxis Plan: We recommend a GI w/u because of suspected GI bleed. Management is with the [facility] for alcohol withdrawal syndrome - management per Medical Services Hold antihypertensives for now DILLAN likely secondary to vol depletion and hypotension - continue careful IVF hydration Right humerus fracture seen on x-ray - management per [facility] Monitor lab closely Replace electrolytes as indicated Continue tele Continue OAC with Eliquis for stroke prophylaxis D/c dig (rhythm intermittently appears to be junctional) We advise immediate and complete alcohol cessation Thank you for your consultation. Please call me if you have any questions. Nan Chin MD, FACP, FACC, FSCAI, FHRS, CCDS Interventional Cardiology Cardiac Electrophysiology Vascular Medicine and Endovascular Interventions Denny CHIN MD November 30, 2020 17:03
[2020-11-30] MEDS ORDERED: IBUPROFEN TABLET 200 MG TAB PO PRN (19:45)
[2020-12-01 04:07] VITALS: BP 129/85
[2020-12-01 04:29] LABS: BASOPHILS # (AUTO) 0.1 10^3/uL (0.0-0.1); BASOPHILS % (AUTO) 1 % (0-10); EOSINOPHILS # (AUTO) 0.4 10^3/uL (0.0-0.3); EOSINOPHILS % (AUTO) 5 % (0-10); HEMATOCRIT 23 % (40-54); LYMPHOCYTES # (AUTO) 1.7 10^3/uL (1.0-4.0); LYMPHOCYTES % (AUTO) 21 % (12-44); MEAN CORPUSCULAR HEMOGLOBIN 36 pg (25-34); MEAN CORPUSCULAR HGB CONC 35 g/dL (32-36); MEAN CORPUSCULAR VOLUME 104 fL (80-99); MEAN PLATELET VOLUME 8.2 fL (9.0-12.2); MONOCYTES # (AUTO) 0.6 10^3/uL (0.0-1.0); MONOCYTES % (AUTO) 8 % (0-12); NEUTROPHILS # (AUTO) 5.1 10^3/uL (1.8-7.8); NEUTROPHILS % (AUTO) 64 % (42-75); PLATELET COUNT 164 10^3/uL (130-400)
[2020-12-01 04:40] LABS: ALBUMIN 3.8 GM/DL (3.2-4.5); CHLORIDE 100 MMOL/L (98-107); POTASSIUM 3.9 MMOL/L (3.6-5.0); SODIUM 132 MMOL/L (135-145)
[2020-12-01 04:41] LABS: CALCIUM 8.4 MG/DL (8.5-10.1)
[2020-12-01 04:42] LABS: GLUCOSE 103 MG/DL (70-105); TOTAL PROTEIN 6.1 GM/DL (6.4-8.2)
[2020-12-01 04:43] LABS: CARBON DIOXIDE 21 MMOL/L (21-32)
[2020-12-01 04:44] LABS: BILIRUBIN,TOTAL 0.4 MG/DL (0.1-1.0)
[2020-12-01 04:46] LABS: ALKALINE PHOSPHATASE 45 U/L (40-136); GFR ESTIMATED > 60
[2020-12-01 04:47] LABS: BUN/CREATININE RATIO 6
[2020-12-01 04:49] LABS: ALANINE AMINOTRANSFERASE 44 U/L (0-55)
[2020-12-01] MEDS: MULTIVIT W/MINERALS TAB (THERAGRAN M) PO SCH (05:18)
[2020-12-01] MEDS: THIAMINE 100 MG (VITAMIN B-1) TAB PO SCH (05:18)
[2020-12-01 07:58] VITALS: BP 137/75
[2020-12-01] MEDS: MAGNESIUM OXIDE (MAG-OX)400 MG TAB PO SCH (08:12)
[2020-12-01] MEDS: AMIODARONE 200 MG (CORDARONE) TAB PO SCH (08:12)
[2020-12-01] MEDS: FAMOTIDINE 20 MG (PEPCID) TABLET PO SCH (08:12)
[2020-12-01] MEDS: FOLIC ACID 1 MG TAB PO SCH (08:12)
--- NOTE | 2020-12-01 11:54 | Progress Note - Surgery ---
Subjective Date Seen by a Provider: December 01, 2020 Time Seen by a Provider: 11:52 Subjective/Events-last exam Patient doing well. No bloody bm. Denies n/v fever sweats chills shortness of breath or chest pain Hgb stable at 8. Wants to go home. Objective Exam Vital Signs Date Time Temp Pulse Resp B/P (MAP) Pulse Ox O2 Delivery O2 Flow Rate FiO2 12/01/20 08:00 99 Room Air 12/01/20 07:58 36.6 63 18 137/75 (95) 99 Room Air 12/01/20 07:00 68 12/01/20 04:07 35.9 68 18 129/85 (100) 98 Room Air 12/01/20 00:11 72 11/30/20 23:52 36.4 70 17 147/82 (103) 97 Room Air 11/30/20 19:41 36.6 69 19 102/59 (73) 99 Room Air 11/30/20 19:22 Room Air 11/30/20 19:00 69 11/30/20 17:09 36.7 71 18 105/62 (76) 98 Room Air 11/30/20 17:00 36.7 71 18 105/62 (76) 98 Room Air 11/30/20 14:00 36.0 64 20 112/76 (88) 100 Room Air 11/30/20 13:00 36.0 64 20 112/76 (88) 100 Room Air 11/30/20 13:00 77 11/30/20 12:00 100 Room Air 11/30/20 12:00 69 21 137/73 (94) 100 Room Air I & O 12/01/20 07:00 Intake Total 1847 ml Balance 1847 ml Capillary Refill : Less Than 3 Seconds General Appearance: No Apparent Distress, WD/WN, Chronically ill HEENT: PERRL/EOMI, Moist Mucous Membranes Neck: Normal Inspection, Non Tender Respiratory: Chest Non Tender, No Accessory Muscle Use, No Respiratory Distress Cardiovascular: Regular Rate, Rhythm, No JVD Gastrointestinal: non tender, soft, no organomegaly, no pulsatile mass Extremity: Normal Capillary Refill, Normal Inspection, Non Tender Neurologic/Psychiatric: Alert, Oriented x3 Skin: Normal Color, Warm/Dry Lymphatic: No Adenopathy Results Lab Laboratory Tests 12/01/20 04:16: White Blood Count 8.0, Red Blood Count 2.23L, Hemoglobin 8.0L, Hematocrit 23L, Mean Corpuscular Volume 104H, Mean Corpuscular Hemoglobin 36H, Mean Corpuscular Hemoglobin Concent 35, Red Cell Distribution Width 14.7H, Platelet Count 164, Mean Platelet Volume 8.2L, Immature Granulocyte % (Auto) 2, Neutrophils (%) (Auto) 64, Lymphocytes (%) (Auto) 21, Monocytes (%) (Auto) 8, Eosinophils (%) (Auto) 5, Basophils (%) (Auto) 1, Neutrophils # (Auto) 5.1, Lymphocytes # (Auto) 1.7, Monocytes # (Auto) 0.6, Eosinophils # (Auto) 0.4H, Basophils # (Auto) 0.1, Immature Granulocyte # (Auto) 0.2H, Sodium Level 132L, Potassium Level 3.9, Chloride Level 100, Carbon Dioxide Level 21, Anion Gap 11, Blood Urea Nitrogen 7, Creatinine 1.10, Estimat Glomerular Filtration Rate > 60, BUN/Creatinine Ratio 6, Glucose Level 103, Calcium Level 8.4L, Corrected Calcium 8.6, Total Bilirubin 0.4, Aspartate Amino Transf (AST/SGOT) 38H, Alanine Aminotransferase (ALT/SGPT) 44, Alkaline Phosphatase 45, Total Protein 6.1L, Albumin 3.8 Assessment/Plan Assessment/Plan Assessment/Plan Orthostatic hypotension Melena Long-term anticoagulation History/current alcohol abuse Right humerus fracture Anemia Alcohol induced nonischemic cardiomyopathy Dilated left pupil compared to right. Patient 55-year-old male with history of alcohol abuse with current use. Discussed need for cessation patient understands. Patient hemoglobin stable. Would recommend endoscopy as outpatient. Clinical Quality Measures DVT/VTE Risk/Contraindication: Contraindications-Pharm: Other *list below* Other: cirrhosis with active etoh consumption with falls and anemia RACHELLE OSBORNE DO December 01, 2020 11:54
[2020-12-01 12:01] VITALS: BP 139/71
[2020-12-01] MEDS ORDERED: MULT1TAB63 PO (12:06)
[2020-12-01] MEDS ORDERED: FOLI1TAB33 PO (12:06)
[2020-12-01] MEDS ORDERED: FAMO20TA5 PO (12:06)
--- NOTE | 2020-12-01 12:06 | Discharge Summary ---
Discharge Summary Hospital Course Was the Problem List Reviewed?: Yes Problems/Dx: (1) Orthostatic hypotension Status: Acute (2) Hyponatremia Status: Acute (3) Acute kidney injury Status: Acute (4) Anemia Status: Acute Qualifiers: Qualified Codes: D64.9 - Anemia, unspecified (5) Alcohol dependence Status: Acute Qualifiers: Qualified Codes: F10.29 - Alcohol dependence with unspecified alcohol- induced disorder Hospital Course Date of Admission: November 28, 2020 at 12:23 Admission Diagnosis : Family Physician/Provider: [facility] Date of Discharge: 12/01/20 Discharge Diagnosis: Orthostatic hypotension, falls, severe hyponatremia, alcohol dependency, alcohol intoxication, alcohol cirrhosis, too high risk for oral anticoagulants, anemia Hospital Course: Patient had a lengthy hospital course he was admitted for severe hyponatremia with orthostatic hypotension falls and alcohol dependence. Oral anticoagulant was discontinued due to high risk for bleeding from fall. Dr. Cunningham consulted for anemia showing no evidence of any Hemoccult positive stools. Alcohol dependency was discussed. Electrolyte abnormality resolved patient was discharged improved condition Labs and Pending Lab Test: Laboratory Tests 12/01/20 04:16: White Blood Count 8.0, Red Blood Count 2.23L, Hemoglobin 8.0L, Hematocrit 23L, Mean Corpuscular Volume 104H, Mean Corpuscular Hemoglobin 36H, Mean Corpuscular Hemoglobin Concent 35, Red Cell Distribution Width 14.7H, Platelet Count 164, Mean Platelet Volume 8.2L, Immature Granulocyte % (Auto) 2, Neutrophils (%) (Auto) 64, Lymphocytes (%) (Auto) 21, Monocytes (%) (Auto) 8, Eosinophils (%) (Auto) 5, Basophils (%) (Auto) 1, Neutrophils # (Auto) 5.1, Lymphocytes # (Auto) 1.7, Monocytes # (Auto) 0.6, Eosinophils # (Auto) 0.4H, Basophils # (Auto) 0.1, Immature Granulocyte # (Auto) 0.2H, Sodium Level 132L, Potassium Level 3.9, Chloride Level 100, Carbon Dioxide Level 21, Anion Gap 11, Blood Urea Nitrogen 7, Creatinine 1.10, Estimat Glomerular Filtration Rate > 60, BUN/Creatinine Ratio 6, Glucose Level 103, Calcium Level 8.4L, Corrected Calcium 8.6, Total Bilirubin 0.4, Aspartate Amino Transf (AST/SGOT) 38H, Alanine Aminotransferase (ALT/SGPT) 44, Alkaline Phosphatase 45, Total Protein 6.1L, Albumin 3.8 Home Meds Active Certavite-Antioxidant Tablet (Multivitamin/Iron/Folic Acid) 1 Each Tablet 1 Ea PO DAILY@0700 Folic Acid 1 Mg Tablet 1 Mg PO DAILY Famotidine 20 Mg Tablet 20 Mg PO BID Reported Aspirin EC (Aspirin) 81 Mg Tablet.dr 81 Mg PO DAILY Benadryl Allergy (Diphenhydramine HCl) 25 Mg Tablet 25-50 Mg PO HS PRN Digoxin 125 Mcg Tablet 125 Mcg PO DAILY Metoprolol Succinate 50 Mg Tab.er.24h 50 Mg PO DAILY Furosemide 40 Mg Tablet 40 Mg PO BID Aldactone (Spironolactone) 25 Mg Tablet 25 Mg PO DAILY Amiodarone HCl 200 Mg Tablet 200 Mg PO DAILY Potassium Chloride 10 Meq Tab.er.prt 10 Meq PO BID Entresto 24 mg-26 mg Tablet (Sacubitril/Valsartan) 1 Each Tablet 1 Tab PO BID Eliquis (Apixaban) 5 Mg Tablet 5 Mg PO BID Assessment/Pt Instructions [facility] outpatient drug rehab Discharge Planning: <30 minutes discharge planning Discharge Physical Examination Vital Signs Vital Signs Date Time Temp Pulse Resp B/P (MAP) Pulse Ox O2 Delivery O2 Flow Rate FiO2 12/01/20 12:01 36.7 76 16 139/71 (93) 99 Room Air 11/30/20 07:00 2.00 General Appearance: No Apparent Distress, WD/WN, Chronically ill Allergies: Coded Allergies: No Known Drug Allergies (Unverified , 10/13/19) Discharge Summary Date of Admission November 28, 2020 at 12:23 Date of Discharge Discharge Date: December 01, 2020 Admission Diagnosis Assessment: Hyponatremia Orthostatic hypotension ETOHism with continued alcohol use DILLAN Anemia with dark stool reported Discharge Diagnosis Assessment: Severe hyponatremia Alcoholism Anemia Alcohol cirrhosis Anisocoria Plan: Dr Cunningham consult for decreased hgb and dark stools Monitor sodium 11/30/2020: Monitor electrolytes Monitor hemoglobin (1) Orthostatic hypotension Status: Acute (2) Hyponatremia Status: Acute (3) Acute kidney injury Status: Acute (4) Anemia Status: Acute Qualifiers: Qualified Codes: D64.9 - Anemia, unspecified (5) Alcohol dependence Status: Acute Qualifiers: Qualified Codes: F10.29 - Alcohol dependence with unspecified alcohol- induced disorder Clinical Quality Measures DVT/VTE Risk/Contraindication: Contraindications-Pharm: Other *list below* Other: cirrhosis with active etoh consumption with falls and anemia CAITY MCKENZIE DO December 01, 2020 12:06
[2020-12-01 12:15] VITALS: BP 139/71
== END 2020-12-01 12:30 | disposition home or self-care (01) ==
LOC: EDUNIT# 10:00 → ER 10:01 → ICU 12:23 → 4TH 11-30 12:35
PROVIDERS: ADMIT Family Medicine; ATTEND Internal Medicine
DX: I95.1 Orthostatic hypotension (principal); E87.1 Hypo-osmolality and hyponatremia; F10.229 Alcohol dependence with intoxication, unspecified; K70.30 Alcoholic cirrhosis of liver without ascites; I42.6 Alcoholic cardiomyopathy; I48.0 Paroxysmal atrial fibrillation; I10 Essential (primary) hypertension; D64.9 Anemia, unspecified; F41.9 Anxiety disorder, unspecified; S42.91XA Fracture of right shoulder girdle, part unspecified, initial encounter for closed fracture; N17.9 Acute kidney failure, unspecified; H57.04 Mydriasis; W19.XXXA Unspecified fall, initial encounter; Z79.82 Long term (current) use of aspirin; Z87.891 Personal history of nicotine dependence; Z79.899 Other long term (current) drug therapy
CPT/HCPCS: 70450; 73030; 80048 ×3; 80053 ×3; 80162; 82274; 82533; 83735 ×3; 83880; 83930; 84100 ×2; 85014; 85018; 85025 ×4; 85610; 93005; 93041; 93306; 96360; 96361; 99284; G0480; 36415; 80320; G0378

== ENCOUNTER → 2021-11-28 | Outpatient (CLI) | payer BC ==
[~2021-11-28] MED LIST changes: -AMIO200T6 PO; +AMIO200T65 PO; +DIGO125T3 PO; +DIPH25TA65 PO; +FAMO20TA5 PO; +FOLI1TAB30 PO; +FOLI1TAB33 PO; +FURO40TA4 PO; -POTA10TA36 PO; +POTA10TA37 PO; +SPIR25TA PO
[2021-11-28 11:11] LABS: HEMATOCRIT 33 % (40-54); HEMOGLOBIN 11.3 g/dL (13.3-17.7); MEAN CORPUSCULAR HEMOGLOBIN 33 pg (25-34); MEAN CORPUSCULAR HGB CONC 35 g/dL (32-36); MEAN CORPUSCULAR VOLUME 95 fL (80-99); MEAN PLATELET VOLUME 8.8 fL (9.0-12.2); PLATELET COUNT 183 10^3/uL (130-400); WHITE BLOOD COUNT 7.2 10^3/uL (4.3-11.0)
[2021-11-28 11:19] LABS: ALBUMIN 4.3 GM/DL (3.2-4.5)
[2021-11-28 11:20] LABS: CALCIUM 8.9 MG/DL (8.5-10.1)
[2021-11-28 11:22] LABS: TOTAL PROTEIN 7.1 GM/DL (6.4-8.2)
[2021-11-28 11:23] LABS: BILIRUBIN,TOTAL 0.5 MG/DL (0.1-1.0)
[2021-11-28 11:25] LABS: CREATININE SERUM 0.97 MG/DL (0.60-1.30)
== END ==
LOC: LAB 10:47
PROVIDERS: ATTEND Internal Medicine Cardiovascular Disease
DX: I42.0 Dilated cardiomyopathy (principal); I48.0 Paroxysmal atrial fibrillation; K92.2 Gastrointestinal hemorrhage, unspecified; Z79.01 Long term (current) use of anticoagulants; Z72.89 Other problems related to lifestyle
CPT/HCPCS: 36415; 80053; 83880; 84443; 85027

== ENCOUNTER → 2022-10-13 | Outpatient (CLI) | payer BC ==
[~2022-10-13] MED LIST changes: +POTA-177 PO; -POTA10TA37 PO
== END ==
LOC: CARD 14:13
PROVIDERS: ATTEND Internal Medicine Cardiovascular Disease
DX: I42.0 Dilated cardiomyopathy (principal)
CPT/HCPCS: 93306